=== PATIENT | male | born 1945 | race Caucasian/White ===

== ENCOUNTER 2018-11-27 14:41 | Emergency (ER) | payer OTHER, MEDICARE ==
[2018-11-27] MEDS ORDERED: NORCO 5/325 MG PO ONE (15:06)
[2018-11-27] MEDS ORDERED: Adacel Vial IM ONE ×2 (15:06→15:10)
[2018-11-27] MEDS ORDERED: NORCO 5/325 MG ONE (15:10)
--- NOTE | 2018-11-27 15:13 | ERPHSYRPT ---
- History of Present Illness Time Seen by Provider: 11/27/18 15:05 Source: patient Exam Limitations: no limitations Patient Subjective Stated Complaint: Pt states "I was working on a screen door and the wind got ahold of it and somehow my finger got in the way." Triage Nursing Assessment: Pt presnted alert and oriented X 3, skin pwd. Pt ambulates with an upright steady gait, able to speak in clear full sentences. Pt has apporx 2 cm laceration noted to left index finger Physician History: 73-year-old white male arrives with an approximately 2.5 cm flap laceration to his left index finger since just prior to arrival. Patient states he was working on a storm door when the wind caught the door and the door hit his finger. Patient has a 2.5 cm laceration to the left index finger distal finger begins that the PIP joint and extends along the ulnar aspect. Patient is not having any problems moving his fingers. Past medical history includes diabetes type 2, posttraumatic stress disorder Past surgical history includes hernia repair, right elbow, cholecystectomy and bilateral knee scopes. . Occurred: just prior to arrival Method of Injury: direct blow (struck with a screen door) Quality: constant Severity of Pain-Max: moderate Severity of Pain-Current: moderate Extremities Pain Location: 2nd finger: left Modifying Factors: Improves With: other (laceration distal left index finger 2.5 cm) Associated Symptoms: none Allergies/Adverse Reactions: No Known Drug Allergies Allergy (Unverified 11/27/18 14:54) Hx Tetanus, Diphtheria Vaccination/Date Given: No Hx Influenza Vaccination/Date Given: Yes Hx Pneumococcal Vaccination/Date Given: Yes Immunizations Up to Date: Yes - Review of Systems Constitutional: No Fever, No Chills Eyes: No Symptoms Ears, Nose, & Throat: No Symptoms Respiratory: No Cough, No Dyspnea Cardiac: No Chest Pain, No Edema, No Syncope Abdominal/Gastrointestinal: No Abdominal Pain, No Nausea, No Vomiting, No Diarrhea Genitourinary Symptoms: No Dysuria Musculoskeletal: Injury, Other (pain distal left index fingerwith 2.5 cm flap laceration.) Skin: Other (2.5 cm flap laceration left distal index finger) Neurological: No Dizziness, No Focal Weakness, No Sensory Changes Psychological: No Symptoms Endocrine: No Symptoms All Other Systems: Reviewed and Negative - Past Medical History Neurological History: No Pertinent History Cardiac History: Hypertension Respiratory History: No Pertinent History Endocrine Medical History: Diabetes Type II Other Medical History: PTSD- [place] - Past Surgical History Past Surgical History: Yes Other Surgical History: hernia. right elbow. lenin. bilat knee scope - Social History Smoking Status: Former smoker Exposure to second hand smoke: No Drug Use: none Patient Lives Alone: No - Nursing Vital Signs Nursing Vital Signs: Initial Vital Signs Temperature 97.8 F 11/27/18 14:48 Pulse Rate 97 H 11/27/18 14:48 Respiratory Rate 16 11/27/18 14:48 Blood Pressure 184/110 11/27/18 14:48 O2 Sat by Pulse Oximetry 96 11/27/18 14:48 Pain Scale Pain Intensity 10 - Physical Exam General Appearance: mild distress, alert Eyes, Ears, Nose, Throat Exam: moist mucous membranes Neck Exam: non-tender, supple Cardiovascular/Respiratory Exam: chest non-tender, normal breath sounds, regular rate/rhythm, no respiratory distress Abdominal Exam: non-tender, No guarding Back Exam: normal inspection, No vertebral tenderness Shoulder Exam: normal inspection, non-tender, no evidence of injury, normal ROM Elbow/Forearm Exam: normal inspection, non-tender, no evidence of injury, normal ROM Wrist Exam: normal inspection, non-tender, no evidence of injury, normal ROM Hand Exam: No normal inspection (2.5 cm flap laceration left distal index finger. Full range of motion left fingers includes left index finger good capillary refill left index finger sensation intact left index finger) Neuro/Tendon Exam: normal sensation, normal motor functions, No sensory deficit Mental Status Exam: alert, oriented x 3, cooperative Skin Exam: normal color, warm, dry SpO2 Interpretation: normal (96%) SpO2: 96 - Course Nursing assessment & vital signs reviewed: Yes Ordered Tests: Active Orders 24 hr Category Date Time Status Wound Care STAT Care 11/27/18 15:06 Active Medication Summary Discontinued Medications Generic Name Dose Route Start Last Admin Trade Name Freq PRN Reason Stop Dose Admin Hydrocodone Bitart/Acetaminophen 1 tab 11/27/18 15:06 [place] 5/325 Mg PO 11/27/18 15:07 STAT ONE Diphtheria/Tetanus/Acell Pertussis 0.5 ml 11/27/18 15:06 Adacel Vial IM 11/27/18 15:07 .ONCE ONE - Progress Progress: improved Progress Note: 11/27/18 15:11 This is a 73-year-old white male who arrives with complaint of pain in his left distal index finger he states he was struck with a screen door. He has a 2.5 cm laceration to the distal left index finger which begins at the DIP joint volar surface and extends along the left distal index finger ulnar aspect. He has full range of motion all fingers sensation intact to all fingers good capillary refill to all fingers. Patient does not want an x-ray. Will go ahead and have nurse clean the area and apply Dermabond and Steri- Strips. Will go ahead and update patient's DTaP. Will give patient [place] for pain. - Departure Departure Disposition: Home Clinical Impression: Contusion of left index finger Qualifiers: Encounter type: initial encounter Damage to nail status: without damage Qualified Code(s): S60.022A - Contusion of left index finger without damage to nail, initial encounter Laceration of left index finger Qualifiers: Encounter type: initial encounter Damage to nail status: without damage Foreign body presence: without foreign body Qualified Code(s): S61.211A - Laceration without foreign body of left index finger without damage to nail, initial encounter Condition: Fair Critical Care Time: No Referrals: HOSPITAL,'S [Primary Care Provider] - Additional Instructions: Return home. Keep area clean and dry. Do not soak the area. Do not apply ointments. [place] as prescribed. Followup with your family DrKerri or return if problems. Return for acute distress or for severe symptoms. Prescriptions: Hydrocodone/APAP 5-325 Tab^^^ [[place] 5-325 Tablet^^^] 1 tab PO Q6HPRN PRN #10 tablet MDD 6 PRN Reason: Pain
[2018-11-27 15:35] VITALS: BP 190/101; PULSE 88; O2SAT 97
== END 2018-11-27 15:41 | disposition home or self-care (01) ==
LOC: ED 14:41
DX: S60.022A Contusion of left index finger without damage to nail, initial encounter (principal); S61.211A Laceration without foreign body of left index finger without damage to nail, initial encounter; W45.8XXA Other foreign body or object entering through skin, initial encounter; Y93.H9 Activity, other involving exterior property and land maintenance, building and construction
CPT/HCPCS: 12001; 90471; 90715; 99283; A9270-GY

== ENCOUNTER 2021-01-15 10:00 | Emergency (ER) | payer OTHER, MEDICARE ==
[2021-01-15 10:23] LABS: Absolute Neutrophil Ct (ANC) 4.24 (1.4-6.9); BASOPHIL % 0.6 % (0.0-0.4); Basophil (Absolute #) 0.05 (0-0.4); Eosinophil % 6.1 % (0.00-5.0); Eosinophil (Absolute #) 0.55 (0-0.5); Hematocrit 49.8 % (42-50); Lymphocytes % 37.6 % (24.0-44.0); Mean Cell Volume 82.3 fl (78-100); Mean Corpuscular Hemoglobin 28.1 pg (26-32); Mean Corpuscular Hgb Concent. 34.1 g/dl (32-36); Mean Platelet Volume 10.5 fl (7.5-11.0); Monocyte (Absolute #) 0.81 (0.0-1.3); Neutrophil % 46.7 % (36.0-66.0); Platelet Count 226 K/mm3 (150-450); Red Blood Count 6.05 M/mm3 (4.1-5.6); Red Cell Distribution Width 14.1 % (11.5-14.0); White Blood Count 9.1 K/mm3 (4.0-10.5)
[2021-01-15 11:01] LABS: ALBUMIN 4.3 g/dL (3.5-5.0); ANION GAP 16.7 MEQ/L (5-15); BILIRUBIN,TOTAL 0.3 mg/dL (0.2-1.3); Calcium 9.4 mg/dL (8.4-10.2); Creatinine 1 1.31 mg/dL (0.66-1.25); EST GLOMERULAR FILTRATION RATE 56.4 ML/MIN; Total Protein 7.5 g/dL (6.3-8.2)
[2021-01-15] MEDS ORDERED: BABY ASPIRIN 81 MG CHEW ONE (11:40)
[2021-01-15] MEDS ORDERED: PLAVIX 75 MG Tablet ONE (11:40)
[2021-01-15] MEDS ORDERED: Sodium Chloride 0.9% 500 ML 500 ML IV ONE (11:40)
[2021-01-15] MEDS: Sodium Chloride 0.9% 500 ML 500 ML IV ONE (11:41)
[2021-01-15] MEDS: PLAVIX 75 MG Tablet PO ONE (11:41)
[2021-01-15] MEDS: ECOTRIN 81 MG PO ONE (11:43)
[2021-01-15] MEDS: BABY ASPIRIN 81 MG CHEW PO ONE (11:46)
--- NOTE | 2021-01-15 12:09 | ERPHSYRPT ---
- History of Present Illness Time Seen by Provider: 01/15/21 10:03 Source: patient Exam Limitations: no limitations Patient Subjective Stated Complaint: L arm numbness/tingling onset 0530 this am Triage Nursing Assessment: pt to ED c/o L arm numbness and tingling since waking at 0530 this am. "I tried to pull up my blanket and this harm wouldnt do it." noted mild weakness in that extremity when compared to R arm. pt states he has had difficulties with this arm in the past few weeks but not like today. denies hx CVA or TIA. also reports intermittent shooting HAs for last few days. no pain now but states rapid onset and relief. Physician History: 75 years old male with history of hypertension, GERD, diabetes mellitus, PTSD presented in the ER with chief complaint of left upper extremity numbness and weakness. Patient report he started to feel numbness last night, went to bed, woke up around 5 AM and was having difficulty movements of left upper extremity with weakness and worsening numbness. Over the course of hours weakness is improved but still feel numb and does not know what his left arm is doing. D enies any visual disturbance, no chest pain palpitations or shortness of breath. No difficulty speech. No difficulty ambulation. Denies any history of stroke in the past. Timing/Duration: yesterday, constant, sudden, worse Severity: moderate Character of Deficits: new weakness, altered sensation Deficits: no difficulties Baseline/Normal Cognition: alert oriented x 3 Current Cognition: alert oriented x 3 Baseline Gait: walks w/o assistance Associated Symptoms: weakness, numbness/tingling in legs/feet, No confusion, No fatigue, No fever, No chills, No loss of consciousness, No nausea, No vomiting, No insomnia, No muscle spasms, No ringing in ears, No seizures, No slurred speech, No trouble walking, No vision changes, No chest pain, No headache Allergies/Adverse Reactions: No Known Drug Allergies Allergy (Unverified 11/27/18 14:54) Hx Tetanus, Diphtheria Vaccination/Date Given: No Hx Influenza Vaccination/Date Given: Yes Hx Pneumococcal Vaccination/Date Given: Yes Immunizations Up to Date: Yes Travel Risk - International Travel Have you traveled outside of the country in past 3 weeks: No - Coronavirus Screening Are you exhibiting any of the following symptoms?: No Close contact with a COVID-19 positive Pt in past 14-21 Days: No - Vaccine Status Have you recieved a Covid-19 vaccination: No - Review of Systems Constitutional: No Symptoms Eyes: No Symptoms Ears, Nose, & Throat: No Symptoms Respiratory: No Symptoms Cardiac: No Symptoms Abdominal/Gastrointestinal: No Symptoms, Appetite Changes Musculoskeletal: No Symptoms Skin: No Symptoms Neurological: Focal Weakness, Sensory Changes Psychological: No Symptoms Endocrine: No Symptoms Hematologic/Lymphatic: No Symptoms Immunological/Allergic: No Symptoms - Past Medical History Pertinent Past Medical History: Yes Neurological History: No Pertinent History Cardiac History: Hypertension Respiratory History: No Pertinent History Endocrine Medical History: Diabetes Type II Other Medical History: PTSD- [place] - Past Surgical History Past Surgical History: Yes Other Surgical History: hernia. right elbow. lenin. bilat knee scope. joint pain R knee - Social History Smoking Status: Former smoker Exposure to second hand smoke: No Drug Use: none Patient Lives Alone: No - Nursing Vital Signs Nursing Vital Signs: Initial Vital Signs Temperature 98.0 F 01/15/21 10:22 Pulse Rate 75 01/15/21 10:22 Respiratory Rate 18 01/15/21 10:22 Blood Pressure 180/104 01/15/21 10:22 O2 Sat by Pulse Oximetry 97 01/15/21 10:22 Pain Scale Pain Intensity 0 - [place] Coma Scale Best Eye Response (Fl[place]): (4) open spontaneously Best Verbal Response (Janessa): (5) oriented Best Motor Response (Janessa): (6) obeys commands [place] Total: 15 - Physical Exam General Appearance: no apparent distress, alert Eye Exam: bilateral eye: normal inspection, PERRL, EOMI Ears, Nose, Throat Exam: normal ENT inspection, TMs normal, pharynx normal, moist mucous membranes Neck Exam: normal inspection, non-tender, supple, full range of motion, No meningismus Respiratory: normal breath sounds, lungs clear, No chest tenderness Cardiovascular: regular rate/rhythm, normal heart sounds Back Exam: normal inspection, normal range of motion Extremity Exam: normal inspection, normal range of motion, pelvis stable Mental Status: alert, oriented x 3, 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 Positive dysdiadochokinesia) Motor/Sensory: sensory deficit (Fine touch left upper extremity ), weak motor strength LUE (4/5), No pronator drift (R), No pronator drift (L) DTR: bicep (R): 2+, bicep (L): 2+, knee (R): 2+, knee (L): 2+ Skin Exam: normal color SpO2 Interpretation: normal SpO2: 97 O2 Delivery: Room Air - Course EKG Interpreted by Me: RATE (74), Sinus Rhythm, NORMAL AXIS, NORMAL INTERVALS, NORMAL QRS Ordered Tests: Active Orders 24 hr Category Date Time Status EKG-ER Only STAT Care 01/15/21 10:14 Completed IV Insertion STAT Care 01/15/21 10:14 Completed NPO (ED) STAT Care 01/15/21 10:14 Completed POCT Glucose Check STAT Care 01/15/21 10:14 Completed Pulse Oximetry (ED) STAT Care 01/15/21 10:14 Completed CHEST 1 VIEW (PORTABLE) Stat Exams 01/15/21 10:[address] ANGIOGRAPHY NECK [CT] Stat Exams 01/15/21 11:31 Completed CTA HEAD W AND/OR WO CONTRAST [CT] Stat Exams 01/15/21 11:31 Completed HEAD WITHOUT CONTRAST [CT] Stat Exams 01/15/21 10:15 Completed CBC W DIFF Stat Lab 01/15/21 10:20 Completed CMP Stat Lab 01/15/21 10:20 Completed Lactic Acid Stat Lab 01/15/21 10:14 Completed POCT GLUCOSE Stat Lab 01/15/21 10:18 Completed TROPONIN Q3H Lab 01/15/21 10:20 Completed TROPONIN Q3H Lab 01/15/21 13:01 Completed UA W/RFX UR CULTURE Stat Lab 01/15/21 13:35 Completed Transfer Order Routine Transfer 01/15/21 Ordered Medication Summary Discontinued Medications Generic Name Dose Route Start Last Admin Trade Name Freq PRN Reason Stop Dose Admin Acetaminophen 650 mg 01/15/21 14:10 01/15/21 14:28 Tylenol 325 Mg PO 01/15/21 14:11 650 mg STAT STA Administration Acetaminophen Confirm 01/15/21 14:28 Tylenol 325 Mg Administered 01/15/21 14:29 Dose 650 mg .ROUTE .STK-MED ONE Aspirin 81 mg 01/15/21 11:30 01/15/21 11:43 Ecotrin 81 Mg PO 01/15/21 11:31 Not Given 1XONLY ONE Aspirin Confirm 01/15/21 11:40 Baby Aspirin 81 Mg Chew Administered 01/15/21 11:41 Dose 81 mg .ROUTE .STK-MED ONE Aspirin 81 mg 01/15/21 11:44 01/15/21 11:46 Baby Aspirin 81 Mg Chew PO 01/15/21 11:45 81 mg STAT ONE Administration Clopidogrel Bisulfate 75 mg 01/15/21 11:30 01/15/21 11:41 Plavix 75 Mg Tablet PO 01/15/21 11:31 75 mg STAT ONE Administration Clopidogrel Bisulfate Confirm 01/15/21 11:40 Plavix 75 Mg Tablet Administered 01/15/21 11:41 Dose 75 mg .ROUTE .STK-MED ONE Diphenhydramine HCl 25 mg 01/15/21 14:57 01/15/21 15:00 Benadryl 50 Mg/Ml IV 01/15/21 14:58 25 mg STAT ONE Administration Diphenhydramine HCl Confirm 01/15/21 14:59 Benadryl 50 Mg/Ml Administered 01/15/21 15:00 Dose 50 mg .ROUTE .STK-MED ONE Sodium Chloride 500 mls @ 500 mls/hr 01/15/21 11:30 01/15/21 13:04 Sodium Chloride 0.9% 500 Ml IV 01/15/21 12:29 Infused .Q1H ONE Infusion Sodium Chloride Confirm 01/15/21 11:40 Sodium Chloride 0.9% 500 Ml Administered 01/15/21 11:41 Dose 500 mls @ ud IV .STK-MED ONE Lorazepam 1 mg 01/15/21 15:23 01/15/21 15:31 Ativan 1 Mg PO 01/15/21 15:24 1 mg STAT ONE Administration Lorazepam Confirm 01/15/21 15:29 Ativan 1 Mg Administered 01/15/21 15:30 Dose 1 mg .ROUTE .STK-MED ONE Lab/Rad Data: Laboratory Result Diagrams 01/15/21 10:20 01/15/21 10:20 Laboratory Results 01/15/21 01/15/21 01/15/21 Range/Units 13:35 13:01 12:03 WBC (4.0-10.5) K/mm3 RBC (4.1-5.6) M/mm3 Hgb (12.5-18.0) gm/dl Hct (42-50) % MCV (78-100) fl MCH (26-32) pg MCHC (32-36) g/dl RDW (11.5-14.0) % Plt Count (150-450) K/mm3 MPV (7.5-11.0) fl Gran % (36.0-66.0) % Eos # (Auto) (0-0.5) Absolute Lymphs (auto) (1.0-4.6) Absolute Monos (auto) (0.0-1.3) Lymphocytes % (24.0-44.0) % Monocytes % (0.0-12.0) % Eosinophils % (0.00-5.0) % Basophils % (0.0-0.4) % Absolute Granulocytes (1.4-6.9) Basophils # (0-0.4) Sodium (137-145) mmol/L Potassium (3.5-5.1) mmol/L Chloride (98-107) mmol/L Carbon Dioxide (22-30) mmol/L Anion Gap (5-15) MEQ/L BUN (9-20) mg/dL Creatinine (0.66-1.25) mg/dL Estimated GFR ML/MIN Glucose (74-106) mg/dL POC Glucometer (74 to 106) mg/dL Lactic Acid (0.4-2.0) Calcium (8.4-10.2) mg/dL Total Bilirubin (0.2-1.3) mg/dL AST (17-59) U/L ALT (0-50) U/L Alkaline Phosphatase (38-126) U/L Troponin I < 0.012 (0.000-0.034) ng/mL Serum Total Protein (6.3-8.2) g/dL Albumin (3.5-5.0) g/dL Urine Color STRAW (YELLOW) Urine Appearance CLEAR (CLEAR) Urine pH 7.0 (5-6) Ur Specific Claude 1.041 (1.005-1.025) Urine Protein NEGATIVE (Negative) Urine Ketones NEGATIVE (NEGATIVE) Urine Blood NEGATIVE (0-5) Saman/ul Urine Nitrite NEGATIVE (NEGATIVE) Urine Bilirubin NEGATIVE (NEGATIVE) Urine Urobilinogen NEGATIVE (0-1) mg/dL Ur Leukocyte Esterase NEGATIVE (NEGATIVE) Urine WBC (Auto) NONE (0-5) /HPF Urine RBC (Auto) NONE SEEN (0-2) /HPF U Epithel Cells (Auto) NONE (FEW) /HPF Urine Bacteria (Auto) NONE SEEN (NEGATIVE) /HPF Urine Mucus (Auto) SLIGHT (NEGATIVE) /HPF Urine Culture Reflexed NO (NO) Urine Glucose 150 (NEGATIVE) mg/dL SARS-CoV-2 (PCR) NEGATIVE (NEGATIVE) 01/15/21 01/15/21 01/15/21 Range/Units 10:20 10:20 10:20 WBC 9.1 (4.0-10.5) K/mm3 RBC 6.05 H (4.1-5.6) M/mm3 Hgb 17.0 (12.5-18.0) gm/dl Hct 49.8 (42-50) % MCV 82.3 (78-100) fl MCH 28.1 (26-32) pg MCHC 34.1 (32-36) g/dl RDW 14.1 H (11.5-14.0) % Plt Count 226 (150-450) K/mm3 MPV 10.5 (7.5-11.0) fl Gran % 46.7 (36.0-66.0) % Eos # (Auto) 0.55 H (0-0.5) Absolute Lymphs (auto) 3.40 (1.0-4.6) Absolute Monos (auto) 0.81 (0.0-1.3) Lymphocytes % 37.6 (24.0-44.0) % Monocytes % 9.0 (0.0-12.0) % Eosinophils % 6.1 H (0.00-5.0) % Basophils % 0.6 (0.0-0.4) % Absolute Granulocytes 4.24 (1.4-6.9) Basophils # 0.05 (0-0.4) Sodium 140 (137-145) mmol/L Potassium 4.0 (3.5-5.1) mmol/L Chloride 106 (98-107) mmol/L Carbon Dioxide 22 (22-30) mmol/L Anion Gap 16.7 H (5-15) MEQ/L BUN 19 (9-20) mg/dL Creatinine 1.31 H (0.66-1.25) mg/dL Estimated GFR 56.4 ML/MIN Glucose 168 H (74-106) mg/dL POC Glucometer (74 to 106) mg/dL Lactic Acid (0.4-2.0) Calcium 9.4 (8.4-10.2) mg/dL Total Bilirubin 0.30 (0.2-1.3) mg/dL AST 27 (17-59) U/L ALT 16 (0-50) U/L Alkaline Phosphatase 79 (38-126) U/L Troponin I < 0.012 (0.000-0.034) ng/mL Serum Total Protein 7.5 (6.3-8.2) g/dL Albumin 4.3 (3.5-5.0) g/dL Urine Color (YELLOW) Urine Appearance (CLEAR) Urine pH (5-6) Ur Specific Claude (1.005-1.025) Urine Protein (Negative) Urine Ketones (NEGATIVE) Urine Blood (0-5) Saman/ul Urine Nitrite (NEGATIVE) Urine Bilirubin (NEGATIVE) Urine Urobilinogen (0-1) mg/dL Ur Leukocyte Esterase (NEGATIVE) Urine WBC (Auto) (0-5) /HPF Urine RBC (Auto) (0-2) /HPF U Epithel Cells (Auto) (FEW) /HPF Urine Bacteria (Auto) (NEGATIVE) /HPF Urine Mucus (Auto) (NEGATIVE) /HPF Urine Culture Reflexed (NO) Urine Glucose (NEGATIVE) mg/dL SARS-CoV-2 (PCR) (NEGATIVE) 01/15/21 01/15/21 Range/Units 10:18 10:14 WBC (4.0-10.5) K/mm3 RBC (4.1-5.6) M/mm3 Hgb (12.5-18.0) gm/dl Hct (42-50) % MCV (78-100) fl MCH (26-32) pg MCHC (32-36) g/dl RDW (11.5-14.0) % Plt Count (150-450) K/mm3 MPV (7.5-11.0) fl Gran % (36.0-66.0) % Eos # (Auto) (0-0.5) Absolute Lymphs (auto) (1.0-4.6) Absolute Monos (auto) (0.0-1.3) Lymphocytes % (24.0-44.0) % Monocytes % (0.0-12.0) % Eosinophils % (0.00-5.0) % Basophils % (0.0-0.4) % Absolute Granulocytes (1.4-6.9) Basophils # (0-0.4) Sodium (137-145) mmol/L Potassium (3.5-5.1) mmol/L Chloride (98-107) mmol/L Carbon Dioxide (22-30) mmol/L Anion Gap (5-15) MEQ/L BUN (9-20) mg/dL Creatinine (0.66-1.25) mg/dL Estimated GFR ML/MIN Glucose (74-106) mg/dL POC Glucometer 158 H (74 to 106) mg/dL Lactic Acid 1.3 (0.4-2.0) Calcium (8.4-10.2) mg/dL Total Bilirubin (0.2-1.3) mg/dL AST (17-59) U/L ALT (0-50) U/L Alkaline Phosphatase (38-126) U/L Troponin I (0.000-0.034) ng/mL Serum Total Protein (6.3-8.2) g/dL Albumin (3.5-5.0) g/dL Urine Color (YELLOW) Urine Appearance (CLEAR) Urine pH (5-6) Ur Specific Claude (1.005-1.025) Urine Protein (Negative) Urine Ketones (NEGATIVE) Urine Blood (0-5) Saman/ul Urine Nitrite (NEGATIVE) Urine Bilirubin (NEGATIVE) Urine Urobilinogen (0-1) mg/dL Ur Leukocyte Esterase (NEGATIVE) Urine WBC (Auto) (0-5) /HPF Urine RBC (Auto) (0-2) /HPF U Epithel Cells (Auto) (FEW) /HPF Urine Bacteria (Auto) (NEGATIVE) /HPF Urine Mucus (Auto) (NEGATIVE) /HPF Urine Culture Reflexed (NO) Urine Glucose (NEGATIVE) mg/dL SARS-CoV-2 (PCR) (NEGATIVE) - Progress Progress: unchanged Progress Note: 01/15/21 12:04 75 years old is evaluated for left upper extremity weakness and numbness starting yesterday. Patient has improvement in weakness but still have numbness. Has positive cerebellar signs with positive past- pointing/dysdiadochokinesia. CT showed remote infarct. [facility] neurology consult is obtained, recommended CTA head neck and MRI/MRAs and other stroke work-up. Recommended giving 81 mg aspirin and Plavix and admission to telemetry unit with neuro checks. Discussed with and patient is accepted for admission. Plan discussed with patient who understand and agrees with it. 01/15/21 13:34 CTA showed focal stenosis of right internal carotid artery as it pierces the dura proximal to the origin of posterior communicating artery and also high-grade stenosis of proximal right M1 segment of middle cerebral artery with a residual diameter of 1 mm but has satisfactory perfusion to the right middle cerebral artery branches distally. CTA neck revealed less than 50% stenosis in the right and left internal carotid artery but there is a posterior hypodense rim suspicious for unstable fatty plaque. Also has left vertebral artery significant stenosis at origin. Since he is a [facility] patient, discussed with dr. Lei [facility], reviewed history, work-up, recommended discussion with neuro interventional list and if patient does not need immediate intervention will be accepted. 01/15/21 14:44 from neurology. Discussed history, work-up and possible need for intervention, did not seem impressed with findings that need immediate intervention, patient would be admitted to neurology. There is a wait time of multiple hours 2 days before patient can be transferred to . Since patient was excepted at [facility], will discuss with neuro interventional list to see if patient is a candidate for immediate intervention or he can be managed with neurology initially and later on can be referred there. 01/15/21 15:[address] [place] Powers, neurosurgery/neuro interventional, reviewed history, exam findings, and CT head without contrast and CTA head and neck. Recommended patient does not need any immediate neuro intervention at this point because of his low NIH score less than 6 and based on a recent study patient needs medical management initially with a dual antiplatelet therapy aspirin Plavix for at least 1 month. In the meanwhile if patient have another episode he would be considered a potential candidate for intervention. Patient can be admitted to neurology service and then patient can follow-up outpatient with his clinic. Upon discharge from [facility] patient needs to have an appointment with neurosurgery and he will be accommodated. Dr. [place] Powers neurosurgery [phone] Reason for consult/referral. Right MCA stenosis 01/15/21 15:[address] Lei again at [facility], reviewed neurosurgery recommendations, she recommended loading patient with 600 of Plavix and 81 mg aspirin, patient is accepted for transfer. 01/15/21 15:19 Patient was very anxious when I went back and refused to talk to his . He has been moving his left arm in all direction without any limitation, did not notice any new focal weakness. He was also having some shivering and given Benadryl as he might have some allergic reaction to IV contrast. Discussed with : Nicole Will see patient in: hospital (observation) Counseled pt/family regarding: lab results, diagnosis, rad results - Departure Departure Disposition: Observation Clinical Impression: Anxiety Stroke Qualifiers: CVA mechanism: unspecified Qualified Code(s): I63.9 - Cerebral infarction, unspecified Condition: Stable Critical Care Time: Yes Critical Care Time(excluding separately billable procedures): Critical 30-74 mins Referrals: HOSPITAL,'S [Primary Care Provider] -
[2021-01-15] MEDS ORDERED: TYLENOL 325 MG ONE (14:28)
[2021-01-15] MEDS: TYLENOL 325 MG PO STA (14:28)
[2021-01-15 14:39] LABS: Appearance CLEAR (CLEAR); Bilirubin NEGATIVE (NEGATIVE); Blood NEGATIVE Ery/ul (0-5); Glucose 150 mg/dL (NEGATIVE); Ketones NEGATIVE (NEGATIVE); Leukocyte Esterase NEGATIVE (NEGATIVE); Mucus SLIGHT /HPF (NEGATIVE); Nitrite NEGATIVE (NEGATIVE); Protein,Urine Dip NEGATIVE (Negative); Specific Gravity 1.041 (1.005-1.025); Urobilinogen NEGATIVE mg/dL (0-1)
[2021-01-15 14:43] LABS: Bacteria NONE SEEN /HPF (NEGATIVE); RBC NONE SEEN /HPF (0-2)
[2021-01-15] MEDS ORDERED: BENADRYL 50 MG/ML ONE (14:59)
[2021-01-15] MEDS: BENADRYL 50 MG/ML IV ONE (15:00)
[2021-01-15 15:13] VITALS: O2SAT 97
[2021-01-15] MEDS ORDERED: Ativan 1 MG ONE (15:29)
[2021-01-15] MEDS: Ativan 1 MG PO ONE (15:31)
[2021-01-15 16:39] VITALS: BP 172/90; PULSE 82
--- NOTE | 2021-01-15 17:03 | XRAY ---
Indication: Arm tingling. Stroke symptoms. Comparison: None Portable apical lordotic chest clear. Heart not enlarged. Left infrahilar chunky calcified nodes. Bony thorax intact with mild osteopenia and degenerative changes. Impression: Nonacute chest with chronic features.
--- NOTE | 2021-01-15 17:05 | XRAY ---
Indication: Left arm weakness/tingling. Stroke symptoms. Multiple contiguous axial images obtained through the head without contrast. Comparison: None Age-appropriate global atrophy and minimal periventricular degenerative micro-ischemia bilaterally. Small focus of old infarct right cerebellum. No acute intracranial hemorrhage, abnormal extra-axial fluid collection, or mass effect. Fourth ventricle is midline without hydrocephalus. Bony calvarium intact. There is mild mucosal thickening of both ethmoid and lesser degree both maxillary/ left sphenoid sinuses. Mastoid air cells are clear. Impression: Nonacute senile brain. 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 Incidental paranasal sinus disease. Comment: Preliminary interpretation made by [facility]. No critical discrepancy.
--- NOTE | 2021-01-15 17:16 | XRAY ---
Indication: Left arm weakness/tingling. Stroke symptoms. Conventional CTA neck performed using 100 cc Isovue 370 contrast. Two-dimensional sagittal and coronal reformatted images obtained. Additional 3-dimensional reformatted images using separate workstation. Comparison: None Visualized aortic arch normal in course and caliber without aneurysm/dissection. There is normal branch right brachiocephalic, left common carotid, and left subclavian arteries with very minimal calcifications at their origins. Right carotid circulation demonstrates minimal eccentric carotid bulb calcifications. Remaining common carotid, internal carotid, and external carotid arteries are normal in CTA appearance. Left carotid circulation demonstrates mild eccentric calcified plaquing at the level of the bulb slightly extending to the origin of internal and external carotid arteries without critical stenosis/obstruction. Remaining common carotid artery is normal in CTA appearance. Vertebral arteries are bilaterally patent with the right larger in caliber. Visualized noncontrasted soft tissues demonstrates a few tiny cervical lymph nodes bilaterally, none pathologically enlarged. Parotid and submandibular glands are bilaterally symmetric. Thyroid gland homogeneous. Lung apices are degraded by respiration artifact with possible patchy bilateral groundglass airspace disease. Patient is edentulous. Osseous structures intact with mild/moderate C3-C7 degenerative changes. CTA head reported specifically. Impression: 1. Minimal/mild arteriosclerotic calcifications bilaterally without critical stenosis/obstruction. 2. Bilaterally patent vertebral arteries with dominant right vertebral artery. 3. Incidental C3-C7 degenerative changes. 4. Query biapical patchy groundglass airspace disease. Comment: Preliminary interpretation made by [facility]. No critical discrepancy.
--- NOTE | 2021-01-15 17:26 | XRAY ---
Indication: Left arm weakness/tingling. Stroke symptoms. Conventional CTA head performed using 100 cc Isovue 370 contrast. Two-dimensional sagittal and coronal reformatted images obtained. Additional 3-dimensional reformatted images using separate workstation. Comparison: None CTA neck reported separately. Parasellar segments of the internal carotid arteries demonstrates mild scattered arteriosclerotic calcifications without critical stenosis/obstruction or AV malformation. Normal carotid terminus with normal branching A1 and M1 segments. Proximal right M1 branch demonstrates smooth intraluminal stenosis, approximately 70-80%. Remaining distal anterior cerebral and middle cerebral arteries are normal in CTA appearance. Incidental normal variant for origin of the left posterior cerebral artery. Posterior circulation demonstrates normal CTA appearance of the basilar artery, right posterior cerebral, and left/right superior cerebellar arteries. Venous drainage/sinuses unremarkable. No abnormal enhancing intra-or extra-axial mass. Impression: 1. Mild arteriosclerotic calcifications parasellar segments of both internal carotid arteries without critical stenosis/obstruction or AV malformation. 2. Smooth 70-80% stenosis of the right M1 branch. 3. Normal CTA posterior circulation with incidental origin left posterior cerebral artery. Comment: Preliminary interpretation made by [facility]. No critical discrepancy.
== END 2021-01-15 16:05 ==
LOC: ED 10:00
DX: F41.9 Anxiety disorder, unspecified (principal); I63.9 Cerebral infarction, unspecified; E11.9 Type 2 diabetes mellitus without complications
CPT/HCPCS: 36000; 36415; 70450; 70496; 70498; 71045; 80053; 81001; 82947; 83605; 84484; 85025; 93005; 94760; 96374; 99285; 99291; U0003; 96375; J1200; A9270-GY

== ENCOUNTER 2021-02-12 16:34 | Inpatient (IN) | payer OTHER ==
[2021-02-12] MEDS ORDERED: solu-MEDROL 125 MG, Sterile H2O 10 ml 2 ML IV ONE ×2 (16:50)
[2021-02-12] MEDS: Lactated Ringers 1,000 ML IV SCH (16:53)
[2021-02-12] MEDS ORDERED: Sterile H2O 10 ml IJ ONE (16:54)
[2021-02-12] MEDS ORDERED: solu-MEDROL ONE (16:54)
--- NOTE | 2021-02-12 17:04 | ERPHSYRPT ---
- History of Present Illness Time Seen by Provider: 02/12/21 16:59 Source: patient Exam Limitations: no limitations Patient Subjective Stated Complaint: weakness Triage Nursing Assessment: Patient brought into ED via w/c and transferred to bed with assist of 2. Patient weak. Patient's skin flushed, warm and dry. Patient intial O2 sat noted to be 76% on room air. Patient placed on O2 at 5 liters bringing sat to 88%. RT present at bedside and placed on oxy mask at 10 liters. Patient states his is covid positive and he has been feeling bad for the past 4-5 days. Patient complains of weakness, dizziness, non productive cough and SOB. Lungs noted to be clear A/P holli. Physician History: atient states his is covid positive and he has been feeling bad for the past 4-5 days. Patient complains of weakness, dizziness, non productive cough and SOB. Timing/Duration: day(s) (4-5 days) Severity of Dyspnea-Max: severe Severity of Dyspnea-Current: severe Associated Symptoms: fever, wheezing, weakness Allergies/Adverse Reactions: No Known Drug Allergies Allergy (Verified 02/12/21 16:36) Hx Tetanus, Diphtheria Vaccination/Date Given: No Hx Influenza Vaccination/Date Given: No Hx Pneumococcal Vaccination/Date Given: Yes Immunizations Up to Date: Yes Travel Risk - International Travel Have you traveled outside of the country in past 3 weeks: No - Coronavirus Screening Are you exhibiting any of the following symptoms?: Yes Symptoms: Cough: New Onset, Shortness of Breath Close contact with a COVID-19 positive Pt in past 14-21 Days: Yes - Vaccine Status Have you recieved a Covid-19 vaccination: No - Review of Systems Constitutional: Fever, Weakness Eyes: No Symptoms Ears, Nose, & Throat: No Symptoms Respiratory: Cough, Dyspnea, Dyspnea on Exertion (MCCARTY), Wheezing Cardiac: Chest Pain, No Edema, No Syncope Abdominal/Gastrointestinal: No Abdominal Pain, No Nausea, No Vomiting, No Diarrhea Genitourinary Symptoms: No Dysuria Musculoskeletal: No Back Pain, No Neck Pain Skin: No Rash Neurological: No Dizziness, No Focal Weakness, No Sensory Changes Psychological: No Symptoms Endocrine: No Symptoms All Other Systems: Reviewed and Negative - Past Medical History Pertinent Past Medical History: Yes Neurological History: No Pertinent History Cardiac History: Hypertension Respiratory History: No Pertinent History Endocrine Medical History: Diabetes Type II Other Medical History: PTSD- [place] - Past Surgical History Past Surgical History: Yes Other Surgical History: hernia. right elbow. lenin. bilat knee scope. joint pain R knee - Social History Smoking Status: Former smoker Exposure to second hand smoke: No Drug Use: none Patient Lives Alone: No - Nursing Vital Signs Nursing Vital Signs: Initial Vital Signs Temperature 99.4 F 02/12/21 16:37 Pulse Rate 85 02/12/21 16:37 Respiratory Rate 25 H 02/12/21 16:37 Blood Pressure 127/78 02/12/21 16:37 O2 Sat by Pulse Oximetry 76 L 02/12/21 16:37 Pain Scale Pain Intensity 0 - Physical Exam General Appearance: moderate distress, lethargy Eye Exam: PERRL/EOMI Ears, Nose, Throat Exam: normal ENT inspection Neck Exam: normal inspection, supple Respiratory Exam: diminished breath sounds, accessory muscle use, crackles/rales, rhonchi, wheezing Cardiovascular/Chest Exam: tachycardia Abdominal/Gastrointestinal Exam: soft, No tenderness, No distention, No mass Extremity Exam: non-tender, normal range of motion, normal inspection, no calf tenderness, no pedal edema Neurologic Exam: alert, sensation nml, No motor deficits Skin Exam: normal color, warm, No dry SpO2 Interpretation: hypoxic, ABG ordered SpO2: 76 O2 Delivery: High Flow - Course Nursing assessment & vital signs reviewed: Yes - CT Exams Chest CT Interpretation: Tele-radiologist Report Ordered Tests: Active Orders 24 hr Category Date Time Status Nursing Unit Clerk STAT Care 02/12/21 16:49 Active EKG-ER Only STAT Care 02/12/21 16:49 Active IV Insertion STAT Care 02/12/21 16:54 Active IV Insertion-2nd Peripheral STAT Care 02/12/21 16:49 Active Isolation, Initiate & Maintain STAT Care 02/12/21 16:49 Active Oxygen-ED Only High Flow per RT 50% Care 02/12/21 16:49 Active CHEST 1 VIEW (PORTABLE) Stat Exams 02/12/21 16:49 Ordered CHEST W/WO CONTRAST [CT] Stat Exams 02/12/21 16:51 Ordered ARTERIAL BLOOD GASES Stat Lab 02/12/21 17:05 Completed CBC Stat Lab 02/12/21 17:02 Completed CMP Stat Lab 02/12/21 17:02 Completed D-DIMER QUANTITATIVE Stat Lab 02/12/21 17:02 Completed Ferritin Stat Lab 02/12/21 17:02 Received LDH-LACTATE DEHYDROGENASE Stat Lab 02/12/21 17:02 Completed NT PRO BNP Stat Lab 02/12/21 17:02 Received TROPONIN Q3H Lab 02/12/21 17:02 Received TROPONIN Q3H Lab 02/12/21 20:00 Ordered TROPONIN Q3H Lab 02/12/21 23:00 Ordered TROPONIN Q3H Lab 02/13/21 02:00 Ordered TROPONIN Q3H Lab 02/13/21 05:00 Ordered Medication Summary Generic Name Dose Route Start Last Admin Trade Name Freq PRN Reason Stop Dose Admin Lactated Ringer's 1,000 mls @ 50 mls/hr 02/12/21 17:00 02/12/21 17:26 Lactated Ringers IV 03/14/21 16:59 999 mls/hr .Q20H ARLETTE Infusion Discontinued Medications Generic Name Dose Route Start Last Admin Trade Name Freq PRN Reason Stop Dose Admin Methylprednisolone Sodium 0 mg 02/12/21 16:50 02/12/21 16:56 Succinate 125 mg/ Sterile IV 02/12/21 16:51 125 mg Water 2 ml STAT ONE Administration Methylprednisolone Sodium Succinate Confirm 02/12/21 16:54 Solu-Medrol Administered 02/12/21 16:55 Dose 125 mg .ROUTE .STK-MED ONE Sterile Water Confirm 02/12/21 16:54 Sterile H2o 10 Ml Administered 02/12/21 16:55 Dose 10 ml IJ .STK-MED ONE Lab/Rad Data: Laboratory Result Diagrams 02/12/21 17:02 02/12/21 17:02 Laboratory Results 02/12/21 02/12/21 02/12/21 Range/Units 17:05 17:02 17:02 WBC (4.0-10.5) K/mm3 RBC (4.1-5.6) M/mm3 Hgb (12.5-18.0) gm/dl Hct (42-50) % MCV (78-100) fl MCH (26-32) pg MCHC (32-36) g/dl RDW (11.5-14.0) % Plt Count (150-450) K/mm3 MPV (7.5-11.0) fl D-Dimer 728 H* (215-500) ng/mL Puncture Site RIGHT RADIAL pCO2 35 (35-45) mmHg pO2 72 L (75-100) mmHg Base Excess 7.2 H (-2.0-2.0) O2 Saturation 94.1 (94-100) g/dF ABG pH 7.54 H (7.35-7.45) ABG HCO3 29.9 H* (22-28) ABG O2 Sat (Measured) 96.2 (95-100) % Hans Test YES A-a Gradient 597 a/A Ratio 0.11 Hemoglobin 17.9 Carboxyhemoglobin 1.6 (0.0-6.9) % THgb Methemoglobin 0.6 L (1.4-1.5) % Temperature 37.0 C POC O2 Flow Rate 100 % Sodium 136 L (137-145) mmol/L Potassium 3.2 L 3.7 (3.5-5.1) mmol/L Chloride 92 L (98-107) mmol/L Carbon Dioxide 33 H (22-30) mmol/L Anion Gap 14.9 (5-15) MEQ/L BUN 41 H (9-20) mg/dL Creatinine 1.54 H (0.66-1.25) mg/dL Estimated GFR 46.8 ML/MIN Glucose 248 H (74-106) mg/dL Calcium 9.0 (8.4-10.2) mg/dL Total Bilirubin 1.00 (0.2-1.3) mg/dL AST 98 H (17-59) U/L ALT 45 (0-50) U/L Alkaline Phosphatase 66 (38-126) U/L Lactate Dehydrogenase 593 H (120-246) U/L Serum Total Protein 7.3 (6.3-8.2) g/dL Albumin 3.9 (3.5-5.0) g/dL 02/12/21 Range/Units 17:02 WBC 5.7 (4.0-10.5) K/mm3 RBC 6.44 H* (4.1-5.6) M/mm3 Hgb 18.5 H (12.5-18.0) gm/dl Hct 51.9 H (42-50) % MCV 80.6 (78-100) fl MCH 28.7 (26-32) pg MCHC 35.6 (32-36) g/dl RDW 13.8 (11.5-14.0) % Plt Count 158 (150-450) K/mm3 MPV 11.9 H (7.5-11.0) fl D-Dimer (215-500) ng/mL Puncture Site pCO2 (35-45) mmHg pO2 (75-100) mmHg Base Excess (-2.0-2.0) O2 Saturation (94-100) g/dF ABG pH (7.35-7.45) ABG HCO3 (22-28) ABG O2 Sat (Measured) (95-100) % Hans Test A-a Gradient a/A Ratio Hemoglobin Carboxyhemoglobin (0.0-6.9) % THgb Methemoglobin (1.4-1.5) % Temperature C POC O2 Flow Rate % Sodium (137-145) mmol/L Potassium (3.5-5.1) mmol/L Chloride (98-107) mmol/L Carbon Dioxide (22-30) mmol/L Anion Gap (5-15) MEQ/L BUN (9-20) mg/dL Creatinine (0.66-1.25) mg/dL Estimated GFR ML/MIN Glucose (74-106) mg/dL Calcium (8.4-10.2) mg/dL Total Bilirubin (0.2-1.3) mg/dL AST (17-59) U/L ALT (0-50) U/L Alkaline Phosphatase (38-126) U/L Lactate Dehydrogenase (120-246) U/L Serum Total Protein (6.3-8.2) g/dL Albumin (3.5-5.0) g/dL - Progress Progress: unchanged Air Movement: fair Blood Culture(s) Obtained: No Antibiotics given: No Counseled pt/family regarding: lab results, diagnosis, need for follow-up, rad results - Departure Departure Disposition: In-patient Admission Clinical Impression: Pneumonia due to COVID-19 virus Respiratory failure Qualifiers: Chronicity: acute Respiratory failure complication: hypoxia Qualified Code(s): J96.01 - Acute respiratory failure with hypoxia Condition: Serious Critical Care Time: Yes Critical Care Time(excluding separately billable procedures): Critical 30-74 mins Referrals: HOSPITAL,'S [Primary Care Provider] -
[2021-02-12 17:06] LABS: Hematocrit 51.9 % (42-50); Hemoglobin 18.5 gm/dl (12.5-18.0); Mean Cell Volume 80.6 fl (78-100); Mean Corpuscular Hemoglobin 28.7 pg (26-32); Mean Corpuscular Hgb Concent. 35.6 g/dl (32-36); Mean Platelet Volume 11.9 fl (7.5-11.0); Platelet Count 158 K/mm3 (150-450); Red Blood Count 6.44 M/mm3 (4.1-5.6); Red Cell Distribution Width 13.8 % (11.5-14.0); White Blood Count 5.7 K/mm3 (4.0-10.5)
[2021-02-12 17:08] LABS: A-aADO2 597; ABG HEMOGLOBIN 17.9; ABG POTASSIUM 3.2 (3.5-5.1); ABG SITE RIGHT RADIAL; ALLEN TEST OK? YES; ARTERIAL BLD GAS O2 SATURATION 96.2 % (95-100); ARTERIAL BLOOD GAS BASE EXCESS 7.2 (-2.0-2.0); ARTERIAL BLOOD GAS FIO2 100 %; ARTERIAL BLOOD GAS PCO2 35 mmHg (35-45); ARTERIAL BLOOD GAS PO2 72 mmHg (75-100); ARTERIAL BLOOD GAS pH 7.54 (7.35-7.45); CARBOXYHEMOGLOBIN 1.6 % THgb (0.0-6.9); HCO3- 29.9 (22-28); HGB O2 SAT 94.1 g/dF (94-100); Methhemoglobin 0.6 % (1.4-1.5)
[2021-02-12 17:18] LABS: ALBUMIN 3.9 g/dL (3.5-5.0); ANION GAP 14.9 MEQ/L (5-15); Creatinine 1 1.54 mg/dL (0.66-1.25); EST GLOMERULAR FILTRATION RATE 46.8 ML/MIN; Potassium 3.7 mmol/L (3.5-5.1); Total Protein 7.3 g/dL (6.3-8.2)
[2021-02-12] MEDS ORDERED: Zofran 4 MG/2 ML VIAL IV PRN (17:37)
[2021-02-12] MEDS ORDERED: Sodium Chloride 0.9% 1000 ML 1,000 ML IV SCH (17:45)
[2021-02-12] MEDS ORDERED: solu-MEDROL 60 MG, Sterile H2O 10 ml 2 ML IV SCH ×2 (18:00)
[2021-02-12] MEDS ORDERED: TYLENOL EXTRA STRENGTH 500 MG PO PRN (21:40)
[2021-02-12] MEDS ORDERED: REMDESIVIR 200 MG in Sodium Chloride 0.9% 250 ML 250 ML IV ONE (21:40)
[2021-02-12] MEDS ORDERED: Ativan 2 MG/1 ML VIAL IV PRN (21:40)
[2021-02-12] MEDS ORDERED: Sodium Chloride 0.9% 250 ML 250 ML IV ONE (21:56)
[2021-02-12] MEDS: Pepcid 20 MG VIAL IV SCH (21:57)
[2021-02-12] MEDS: HUMALOG SQ PRN (21:57)
[2021-02-12] MEDS ORDERED: REMDESIVIR IV ONE (21:57)
[2021-02-13 06:36] LABS: Hematocrit 45.3 % (42-50); Hemoglobin 15.3 gm/dl (12.5-18.0); Mean Cell Volume 82.2 fl (78-100); Mean Corpuscular Hemoglobin 27.8 pg (26-32); Mean Corpuscular Hgb Concent. 33.8 g/dl (32-36); Mean Platelet Volume 11.9 fl (7.5-11.0); Platelet Count 148 K/mm3 (150-450); Red Blood Count 5.51 M/mm3 (4.1-5.6); Red Cell Distribution Width 13.6 % (11.5-14.0); White Blood Count 4.1 K/mm3 (4.0-10.5)
[2021-02-13 06:58] LABS: ALBUMIN 2.9 g/dL (3.5-5.0); ALKALINE PHOSPHATASE 51 U/L (38-126); ANION GAP 12.2 MEQ/L (5-15); BLOOD UREA NITROGEN 39 mg/dL (9-20); CHLORIDE 94 mmol/L (98-107); Calcium 8.1 mg/dL (8.4-10.2); Carbon Dioxide 28 mmol/L (22-30); Creatinine 1 1.16 mg/dL (0.66-1.25); EST GLOMERULAR FILTRATION RATE > 60.0 ML/MIN; Glucose 358 mg/dL (74-106); NT PRO BNP 127 pg/mL (0-1800); Potassium 3.8 mmol/L (3.5-5.1); SGOT/AST 68 U/L (17-59); SGPT/ALT 38 U/L (0-50); SODIUM 130 mmol/L (137-145); Total Protein 5.6 g/dL (6.3-8.2)
[2021-02-13] MEDS: HUMALOG SQ PRN ×4 (07:52→21:49)
--- NOTE | 2021-02-13 08:32 | XRAY ---
Indication: Hypoxia. Short of breath. Positive Covid 19. Comparison: January 15, 2021. Portable chest demonstrates new diffuse bilateral patchy airspace disease without consolidation/large effusion. Heart not enlarged with stable left hilar calcified nodes.
--- NOTE | 2021-02-13 08:32 | XRAY ---
Indication: Hypoxia. Short of breath. Positive Covid 19. Multiple contiguous axial images obtained through the chest without contrast. Comparison: None Lungs demonstrate diffuse bilateral airspace disease greatest in both lower lobes. No consolidation/large effusion. Heart is not enlarged. Aorta minimally arteriosclerotic without aneurysm. [place] left hilar calcified nodes. Small hiatal hernia. Bony thorax intact with mild degenerative changes throughout the spine. Limited upper abdomen demonstrates splenic calcified granulomas and cholecystectomy clips. Impression: 1. Diffuse bilateral airspace disease. Commonly reported imaging features of Covid 19 pneumonia are present. Other processes such as influenza pneumonia and organizing pneumonia, as can be seen with drug toxicity and connective tissue disease, can cause similar imaging pattern. 2. Incidental small hiatal hernia and old granulomatous disease. Comment: Preliminary interpretation made by C. No critical discrepancy.
[2021-02-13 08:33] LABS: ATYPICAL LYMPHS 2 %; BAND 3 % (0.0-2.0); Lymphocytes 16 % (24-44); Monocyte 3 % (0.0-12.0); Neutrophils 76 % (36.-66.); Platelet Estimate NORMAL (NORMAL); Total Cells Counted 100
[2021-02-13] MEDS ORDERED: OLUMIANT PO SCH (10:00)
[2021-02-13] MEDS ORDERED: Decadron 4 MG INJ IV SCH (10:00)
[2021-02-13] MEDS ORDERED: ROCEPHIN 1 Gm-D5w 50 ml Bag** 1 G/50 ML IVPB IV SCH (10:00)
[2021-02-13] MEDS ORDERED: Zithromax 500 MG/ 250 ML NaCl Premix 500 MG/250 ML IVPB IV SCH (10:00)
[2021-02-13] MEDS: ENOXAPARIN SODIUM SQ SCH (10:08)
[2021-02-13] MEDS: DECADRON 10MG INJ. IV SCH (10:08)
[2021-02-13] MEDS: OLUMIANT PO SCH (10:09)
[2021-02-13] MEDS: Pepcid 20 MG VIAL IV SCH ×2 (10:09→21:49)
--- NOTE | 2021-02-13 14:37 | HP ---
CHIEF COMPLAINT: "Can't breathe". HISTORY OF PRESENT ILLNESS: A 75 year-old white male whose tested positive for COVID over a week ago. For two days he has been chilling, short of breath, weak and having trouble walking today and finally came in. He had a little bit of a productive cough. He has no nausea, vomiting or diarrhea. He is a smoker. If he has quit it has been in the last year. He is a pack a day keenan. He is retired. He lives with his and step-son who has got COVID. PHYSICAL EXAMINATION: GENERAL: The patient is alert, orientated, pleasant, looks like a strong 75 year-old man. HEENT: Pupils equal and reactive to light. NECK: Supple without adenopathy. CHEST: Rales bilateral. CVS: Regular rate. ABDOMEN: Soft. No masses or organomegaly. He is not obese. EXTREMITIES: Good pulses. No edema. IMPRESSION: He has bilateral COVID pneumonia, respiratory distress, diabetes mellitus, hypertension, in stable condition right now. PROGNOSIS: Guarded.
[2021-02-13] MEDS: PLAVIX 75 MG Tablet PO SCH (15:39)
[2021-02-13] MEDS: ZOCOR 20MG PO SCH (15:39)
[2021-02-13] MEDS: NORVASC 5 MG PO SCH (15:39)
[2021-02-13] MEDS: hydroDIURIL 25 MG PO SCH (15:39)
[2021-02-13] MEDS: ECOTRIN 81 MG PO SCH (15:39)
[2021-02-13] MEDS: SYNTHROID 25 MCG PO SCH (15:39)
[2021-02-13] MEDS: Lantus Insulin SQ SCH (15:40)
[2021-02-13] MEDS: Glucophage 500 MG PO SCH (16:58)
[2021-02-13] MEDS: Lactated Ringers 1,000 ML IV SCH (18:07)
[2021-02-13] MEDS: Protonix 40MG Tablet PO SCH (21:49)
[2021-02-13] MEDS ORDERED: NON-FORMULARY ITEM (Omeprazole [Omeprazole] 40 MG) PO SCH (22:00)
[2021-02-14 05:26] LABS: A-aADO2 464; ABG HEMOGLOBIN 15.9; ABG POTASSIUM 3.2 (3.5-5.1); ABG SITE RIGHT BRACHIAL; ARTERIAL BLD GAS O2 SATURATION 91.9 % (95-100); ARTERIAL BLOOD GAS BASE EXCESS 8.7 (-2.0-2.0); ARTERIAL BLOOD GAS FIO2 80 %; ARTERIAL BLOOD GAS PCO2 36 mmHg (35-45); ARTERIAL BLOOD GAS PO2 61 mmHg (75-100); ARTERIAL BLOOD GAS pH 7.55 (7.35-7.45); CARBOXYHEMOGLOBIN 0.8 % THgb (0.0-6.9); HCO3- 31.5 (22-28); HGB O2 SAT 90.4 g/dF (94-100); Methhemoglobin 0.7 % (1.4-1.5)
[2021-02-14 05:40] LABS: Hematocrit 49.4 % (42-50); Hemoglobin 16.7 gm/dl (12.5-18.0); Mean Cell Volume 83.3 fl (78-100); Mean Corpuscular Hemoglobin 28.2 pg (26-32); Mean Corpuscular Hgb Concent. 33.8 g/dl (32-36); Platelet Count 132 K/mm3 (150-450); Red Blood Count 5.93 M/mm3 (4.1-5.6); Red Cell Distribution Width 13.9 % (11.5-14.0); White Blood Count 9.3 K/mm3 (4.0-10.5)
[2021-02-14 06:29] LABS: ANION GAP 10.4 MEQ/L (5-15); Potassium 3.7 mmol/L (3.5-5.1)
[2021-02-14] MEDS: Glucophage 500 MG PO SCH ×2 (08:35→17:17)
--- NOTE | 2021-02-14 09:02 | XRAY ---
Indication: Short of breath. Positive Covid 19. Comparison: February 12, 2021. Portable chest demonstrates grossly stable diffuse bilateral patchy airspace disease again without consolidation/large effusion. Heart not enlarged again with incidental left hilar calcified nodes. No new cardiopulmonary abnormalities.
[2021-02-14] MEDS ORDERED: NON-FORMULARY ITEM (Atorvastatin Calcium [Atorvastatin Calcium] 80 MG) PO SCH (10:00)
[2021-02-14] MEDS: Pepcid 20 MG VIAL IV SCH ×2 (11:28→21:29)
[2021-02-14] MEDS: DECADRON 10MG INJ. IV SCH (11:28)
[2021-02-14] MEDS: NORVASC 5 MG PO SCH (11:29)
[2021-02-14] MEDS: ZOCOR 20MG PO SCH (11:29)
[2021-02-14] MEDS: ECOTRIN 81 MG PO SCH (11:29)
[2021-02-14] MEDS: hydroDIURIL 25 MG PO SCH (11:29)
[2021-02-14] MEDS: SYNTHROID 25 MCG PO SCH (11:30)
[2021-02-14] MEDS: Protonix 40MG Tablet PO SCH ×2 (11:30→21:29)
[2021-02-14] MEDS: Lantus Insulin SQ SCH (11:30)
[2021-02-14] MEDS: OLUMIANT PO SCH ×2 (11:35→14:26)
[2021-02-14] MEDS: ENOXAPARIN SODIUM SQ SCH (11:38)
[2021-02-14] MEDS: PLAVIX 75 MG Tablet PO SCH (11:38)
[2021-02-14] MEDS: REMDESIVIR 100 MG in Sodium Chloride 0.9% 100 ML BAG 100 ML IV SCH (21:29)
[2021-02-14] MEDS: HUMALOG SQ PRN (21:29)
[2021-02-15 06:12] LABS: INR 1.03 (0.8-3.0); PROTIME 12.1 SECONDS (9.4-12.5)
[2021-02-15 06:26] LABS: ALBUMIN 3.5 g/dL (3.5-5.0); ALKALINE PHOSPHATASE 56 U/L (38-126); ANION GAP 14.2 MEQ/L (5-15); BLOOD UREA NITROGEN 27 mg/dL (9-20); CHLORIDE 95 mmol/L (98-107); Calcium 8.5 mg/dL (8.4-10.2); Carbon Dioxide 30 mmol/L (22-30); Creatinine 1 1.04 mg/dL (0.66-1.25); EST GLOMERULAR FILTRATION RATE > 60.0 ML/MIN; Glucose 162 mg/dL (74-106); Potassium 3.3 mmol/L (3.5-5.1); SGOT/AST 57 U/L (17-59); SGPT/ALT 29 U/L (0-50); SODIUM 135 mmol/L (137-145); Total Protein 6.7 g/dL (6.3-8.2)
[2021-02-15] MEDS: Glucophage 500 MG PO SCH ×2 (07:39→17:11)
--- NOTE | 2021-02-15 08:34 | XRAY ---
Indication: Positive Covid 19. Comparison: One day earlier. Portable chest better inflated, probably explaining minimally improved diffuse bilateral patchy airspace disease. Heart not enlarged again with left hilar calcified nodes. No new cardiopulmonary abnormalities.
[2021-02-15] MEDS ORDERED: D5w/0.45NS W/ 40MEQ KCl 1000 Ml 1,000 ML IV SCH (10:30)
[2021-02-15] MEDS: DECADRON 10MG INJ. IV SCH (10:52)
[2021-02-15] MEDS: Pepcid 20 MG VIAL IV SCH ×2 (10:52→21:15)
[2021-02-15] MEDS: hydroDIURIL 25 MG PO SCH (10:53)
[2021-02-15] MEDS: PLAVIX 75 MG Tablet PO SCH (10:53)
[2021-02-15] MEDS: SYNTHROID 25 MCG PO SCH (10:53)
[2021-02-15] MEDS: Lantus Insulin SQ SCH (10:53)
[2021-02-15] MEDS: ENOXAPARIN SODIUM SQ SCH (10:53)
[2021-02-15] MEDS: Protonix 40MG Tablet PO SCH ×2 (10:53→21:15)
[2021-02-15] MEDS: OLUMIANT PO SCH (10:53)
[2021-02-15] MEDS: NORVASC 5 MG PO SCH (10:53)
[2021-02-15] MEDS: ZOCOR 20MG PO SCH (10:53)
[2021-02-15] MEDS: ECOTRIN 81 MG PO SCH (11:39)
[2021-02-15] MEDS: QUESTRAN Light 4 GM Packet PO SCH (12:01)
[2021-02-15] MEDS: REMDESIVIR 100 MG in Sodium Chloride 0.9% 100 ML BAG 100 ML IV SCH (21:15)
[2021-02-15] MEDS: HUMALOG SQ PRN (22:00)
[2021-02-16 05:44] LABS: ALBUMIN 3.1 g/dL (3.5-5.0); ALKALINE PHOSPHATASE 48 U/L (38-126); ANION GAP 10.5 MEQ/L (5-15); BLOOD UREA NITROGEN 25 mg/dL (9-20); CHLORIDE 96 mmol/L (98-107); Calcium 8.4 mg/dL (8.4-10.2); Carbon Dioxide 29 mmol/L (22-30); Creatinine 1 0.93 mg/dL (0.66-1.25); EST GLOMERULAR FILTRATION RATE > 60.0 ML/MIN; Glucose 110 mg/dL (74-106); INR 1.03 (0.8-3.0); PROTIME 12.2 SECONDS (9.4-12.5); Potassium 3.2 mmol/L (3.5-5.1); SGOT/AST 51 U/L (17-59); SGPT/ALT 26 U/L (0-50); SODIUM 132 mmol/L (137-145); Total Protein 5.9 g/dL (6.3-8.2)
[2021-02-16] MEDS: Glucophage 500 MG PO SCH ×2 (08:38→17:53)
[2021-02-16] MEDS: Protonix 40MG Tablet PO SCH ×2 (10:19→21:26)
[2021-02-16] MEDS: OLUMIANT PO SCH (10:19)
[2021-02-16] MEDS: PLAVIX 75 MG Tablet PO SCH (10:19)
[2021-02-16] MEDS: hydroDIURIL 25 MG PO SCH (10:19)
[2021-02-16] MEDS: SYNTHROID 25 MCG PO SCH (10:19)
[2021-02-16] MEDS: NORVASC 5 MG PO SCH (10:20)
[2021-02-16] MEDS: Lantus Insulin SQ SCH (10:20)
[2021-02-16] MEDS: Pepcid 20 MG VIAL IV SCH ×2 (10:20→21:26)
[2021-02-16] MEDS: DECADRON 10MG INJ. IV SCH (10:20)
[2021-02-16] MEDS: ZOCOR 20MG PO SCH (10:20)
[2021-02-16] MEDS: ENOXAPARIN SODIUM SQ SCH (10:21)
[2021-02-16] MEDS ORDERED: QUESTRAN Light 4 GM Packet PO SCH (10:30)
[2021-02-16] MEDS: QUESTRAN Light 4 GM Packet PO SCH (10:33)
[2021-02-16] MEDS: HUMALOG SQ PRN (21:26)
[2021-02-16] MEDS: REMDESIVIR 100 MG in Sodium Chloride 0.9% 100 ML BAG 100 ML IV SCH (21:26)
[2021-02-17 06:41] LABS: INR 1.02 (0.8-3.0)
[2021-02-17 06:48] LABS: ALBUMIN 3.4 g/dL (3.5-5.0); ALKALINE PHOSPHATASE 55 U/L (38-126); ANION GAP 13.8 MEQ/L (5-15); BLOOD UREA NITROGEN 30 mg/dL (9-20); CHLORIDE 97 mmol/L (98-107); Carbon Dioxide 27 mmol/L (22-30); Creatinine 1 1.11 mg/dL (0.66-1.25); EST GLOMERULAR FILTRATION RATE > 60.0 ML/MIN; Glucose 115 mg/dL (74-106); Potassium 3.4 mmol/L (3.5-5.1); SGOT/AST 55 U/L (17-59); SGPT/ALT 26 U/L (0-50); SODIUM 135 mmol/L (137-145); Total Protein 6.4 g/dL (6.3-8.2)
--- NOTE | 2021-02-17 08:58 | XRAY ---
Indication: Follow-up positive Covid 19. Comparison: February 15, 2021. Portable chest unchanged again demonstrating diffuse bilateral patchy airspace disease without consolidation/large effusion. Heart not enlarged. No new cardiopulmonary abnormalities.
[2021-02-17] MEDS: Glucophage 500 MG PO SCH ×2 (09:27→17:54)
[2021-02-17] MEDS: PLAVIX 75 MG Tablet PO SCH (10:08)
[2021-02-17] MEDS: NORVASC 5 MG PO SCH (10:09)
[2021-02-17] MEDS: OLUMIANT PO SCH (10:09)
[2021-02-17] MEDS: Pepcid 20 MG VIAL IV SCH ×2 (10:09→22:47)
[2021-02-17] MEDS: DECADRON 10MG INJ. IV SCH (10:09)
[2021-02-17] MEDS: hydroDIURIL 25 MG PO SCH (10:09)
[2021-02-17] MEDS: Protonix 40MG Tablet PO SCH ×2 (10:09→22:47)
[2021-02-17] MEDS: ZOCOR 20MG PO SCH (10:09)
[2021-02-17] MEDS: SYNTHROID 25 MCG PO SCH (10:09)
[2021-02-17] MEDS: Lantus Insulin SQ SCH (10:09)
[2021-02-17] MEDS: ENOXAPARIN SODIUM SQ SCH (10:11)
[2021-02-17] MEDS: QUESTRAN Light 4 GM Packet PO SCH (13:45)
[2021-02-17] MEDS: REMDESIVIR 100 MG in Sodium Chloride 0.9% 100 ML BAG 100 ML IV SCH (22:47)
[2021-02-18 06:53] LABS: Hematocrit 49.9 % (42-50); Hemoglobin 17.3 gm/dl (12.5-18.0); Mean Cell Volume 79.2 fl (78-100); Mean Corpuscular Hemoglobin 27.5 pg (26-32); Mean Corpuscular Hgb Concent. 34.7 g/dl (32-36); Mean Platelet Volume 10.8 fl (7.5-11.0); Platelet Count 304 K/mm3 (150-450); Red Cell Distribution Width 13.8 % (11.5-14.0); White Blood Count 9.8 K/mm3 (4.0-10.5)
[2021-02-18 07:01] LABS: INR 1.15 (0.8-3.0); PROTIME 13.6 SECONDS (9.4-12.5)
[2021-02-18 07:07] LABS: ALBUMIN 3.2 g/dL (3.5-5.0); ALKALINE PHOSPHATASE 49 U/L (38-126); ANION GAP 12.5 MEQ/L (5-15); BLOOD UREA NITROGEN 29 mg/dL (9-20); CHLORIDE 99 mmol/L (98-107); Calcium 8.5 mg/dL (8.4-10.2); Carbon Dioxide 25 mmol/L (22-30); Creatinine 1 1.06 mg/dL (0.66-1.25); EST GLOMERULAR FILTRATION RATE > 60.0 ML/MIN; Glucose 74 mg/dL (74-106); Potassium 3.3 mmol/L (3.5-5.1); SGOT/AST 58 U/L (17-59); SGPT/ALT 24 U/L (0-50); SODIUM 134 mmol/L (137-145); Total Protein 6.1 g/dL (6.3-8.2)
[2021-02-18] MEDS: Glucophage 500 MG PO SCH ×2 (08:11→17:19)
[2021-02-18] MEDS: ENOXAPARIN SODIUM SQ SCH (10:48)
[2021-02-18] MEDS: DECADRON 10MG INJ. IV SCH ×2 (10:48→11:23)
[2021-02-18] MEDS: Lantus Insulin SQ SCH (10:49)
[2021-02-18] MEDS: hydroDIURIL 25 MG PO SCH (10:49)
[2021-02-18] MEDS: Pepcid 20 MG VIAL IV SCH ×2 (10:49→22:12)
[2021-02-18] MEDS: ZOCOR 20MG PO SCH (10:49)
[2021-02-18] MEDS: Protonix 40MG Tablet PO SCH ×2 (10:49→22:12)
[2021-02-18] MEDS: OLUMIANT PO SCH (10:49)
[2021-02-18] MEDS: QUESTRAN Light 4 GM Packet PO SCH (10:50)
[2021-02-18] MEDS: PLAVIX 75 MG Tablet PO SCH (10:50)
[2021-02-18] MEDS: SYNTHROID 25 MCG PO SCH (10:50)
[2021-02-18] MEDS: NORVASC 5 MG PO SCH (10:50)
[2021-02-18] MEDS: HUMALOG SQ PRN ×2 (17:19→22:13)
--- NOTE | 2021-02-18 19:25 | XRAY ---
Indication: Follow-up Covid 19. Comparison: One day earlier. Portable chest demonstrates grossly stable diffuse bilateral patchy airspace disease without consolidation/large effusion. Heart not enlarged. No new cardiopulmonary abnormalities.
[2021-02-18] MEDS: REMDESIVIR 100 MG in Sodium Chloride 0.9% 100 ML BAG 100 ML IV SCH (22:12)
[2021-02-19] MEDS: Lactated Ringers 1,000 ML IV SCH ×3 (07:13→16:29)
[2021-02-19 07:42] LABS: ALKALINE PHOSPHATASE 44 U/L (38-126); ANION GAP 10.5 MEQ/L (5-15); BLOOD UREA NITROGEN 28 mg/dL (9-20); CHLORIDE 99 mmol/L (98-107); Calcium 8.5 mg/dL (8.4-10.2); Carbon Dioxide 26 mmol/L (22-30); EST GLOMERULAR FILTRATION RATE > 60.0 ML/MIN; Glucose 103 mg/dL (74-106); Potassium 3.6 mmol/L (3.5-5.1); SGOT/AST 49 U/L (17-59); SGPT/ALT 20 U/L (0-50); SODIUM 133 mmol/L (137-145); Total Protein 5.8 g/dL (6.3-8.2)
[2021-02-19 08:15] LABS: Hemoglobin 16.4 gm/dl (12.5-18.0); Mean Cell Volume 80.5 fl (78-100); Mean Corpuscular Hemoglobin 28.1 pg (26-32); Mean Corpuscular Hgb Concent. 34.9 g/dl (32-36); Platelet Count 338 K/mm3 (150-450); Red Blood Count 5.84 M/mm3 (4.1-5.6); Red Cell Distribution Width 13.7 % (11.5-14.0); White Blood Count 9.5 K/mm3 (4.0-10.5)
[2021-02-19] MEDS: Glucophage 500 MG PO SCH ×2 (08:33→16:29)
[2021-02-19] MEDS: hydroDIURIL 25 MG PO SCH (09:18)
[2021-02-19] MEDS: Lantus Insulin SQ SCH (09:18)
[2021-02-19] MEDS: Protonix 40MG Tablet PO SCH ×2 (09:18→22:25)
[2021-02-19] MEDS: ENOXAPARIN SODIUM SQ SCH (09:18)
[2021-02-19] MEDS: ZOCOR 20MG PO SCH (09:18)
[2021-02-19] MEDS: PLAVIX 75 MG Tablet PO SCH (09:18)
[2021-02-19] MEDS: NORVASC 5 MG PO SCH (09:18)
[2021-02-19] MEDS: SYNTHROID 25 MCG PO SCH (09:18)
[2021-02-19] MEDS: OLUMIANT PO SCH (09:18)
[2021-02-19] MEDS: Pepcid 20 MG VIAL IV SCH ×2 (09:19→22:25)
[2021-02-19] MEDS: QUESTRAN Light 4 GM Packet PO SCH (09:19)
[2021-02-19] MEDS: DECADRON 10MG INJ. IV SCH (09:19)
[2021-02-19] MEDS: Ativan 1 MG PO PRN (09:29)
[2021-02-19] MEDS: REMDESIVIR 100 MG in Sodium Chloride 0.9% 100 ML BAG 100 ML IV SCH (22:25)
[2021-02-19] MEDS: HUMALOG SQ PRN (22:26)
[2021-02-20 06:03] LABS: Hematocrit 47.7 % (42-50); Hemoglobin 16.4 gm/dl (12.5-18.0); Mean Cell Volume 81.1 fl (78-100); Mean Corpuscular Hemoglobin 27.9 pg (26-32); Mean Corpuscular Hgb Concent. 34.4 g/dl (32-36); Mean Platelet Volume 10.8 fl (7.5-11.0); Platelet Count 413 K/mm3 (150-450); Red Blood Count 5.88 M/mm3 (4.1-5.6); Red Cell Distribution Width 13.8 % (11.5-14.0); White Blood Count 11.2 K/mm3 (4.0-10.5)
[2021-02-20 06:14] LABS: ALBUMIN 3.1 g/dL (3.5-5.0); ALKALINE PHOSPHATASE 46 U/L (38-126); ANION GAP 11.8 MEQ/L (5-15); BLOOD UREA NITROGEN 32 mg/dL (9-20); CHLORIDE 99 mmol/L (98-107); Calcium 8.4 mg/dL (8.4-10.2); Carbon Dioxide 28 mmol/L (22-30); Creatinine 1 1.15 mg/dL (0.66-1.25); EST GLOMERULAR FILTRATION RATE > 60.0 ML/MIN; Glucose 71 mg/dL (74-106); Potassium 3.6 mmol/L (3.5-5.1); SGOT/AST 44 U/L (17-59); SGPT/ALT 19 U/L (0-50); SODIUM 135 mmol/L (137-145); Total Protein 5.9 g/dL (6.3-8.2)
[2021-02-20] MEDS: Glucophage 500 MG PO SCH ×2 (09:04→17:24)
[2021-02-20] MEDS: Protonix 40MG Tablet PO SCH ×2 (11:10→22:26)
[2021-02-20] MEDS: PLAVIX 75 MG Tablet PO SCH (11:10)
[2021-02-20] MEDS: ENOXAPARIN SODIUM SQ SCH (11:10)
[2021-02-20] MEDS: ZOCOR 20MG PO SCH (11:10)
[2021-02-20] MEDS: SYNTHROID 25 MCG PO SCH (11:10)
[2021-02-20] MEDS: OLUMIANT PO SCH (11:10)
[2021-02-20] MEDS: NORVASC 5 MG PO SCH (11:10)
[2021-02-20] MEDS: hydroDIURIL 25 MG PO SCH (11:10)
[2021-02-20] MEDS: DECADRON 10MG INJ. IV SCH (11:11)
[2021-02-20] MEDS: QUESTRAN Light 4 GM Packet PO SCH (11:11)
[2021-02-20] MEDS: Pepcid 20 MG VIAL IV SCH ×2 (11:11→22:26)
[2021-02-20] MEDS: Lantus Insulin SQ SCH (11:19)
[2021-02-20] MEDS: Ativan 1 MG PO PRN (22:26)
[2021-02-20] MEDS: REMDESIVIR 100 MG in Sodium Chloride 0.9% 100 ML BAG 100 ML IV SCH (22:26)
[2021-02-20] MEDS: HUMALOG SQ PRN (23:54)
[2021-02-21 07:35] LABS: Hematocrit 46.7 % (42-50); Hemoglobin 16.3 gm/dl (12.5-18.0); Mean Cell Volume 80.2 fl (78-100); Mean Corpuscular Hgb Concent. 34.9 g/dl (32-36); Mean Platelet Volume 10.6 fl (7.5-11.0); Platelet Count 420 K/mm3 (150-450); Red Blood Count 5.82 M/mm3 (4.1-5.6); Red Cell Distribution Width 13.6 % (11.5-14.0); White Blood Count 12.1 K/mm3 (4.0-10.5)
[2021-02-21] MEDS: ENOXAPARIN SODIUM SQ SCH (09:16)
[2021-02-21] MEDS: PLAVIX 75 MG Tablet PO SCH (09:17)
[2021-02-21] MEDS: hydroDIURIL 25 MG PO SCH (09:17)
[2021-02-21] MEDS: Pepcid 20 MG VIAL IV SCH ×2 (09:17→21:02)
[2021-02-21] MEDS: Protonix 40MG Tablet PO SCH ×2 (09:17→21:02)
[2021-02-21] MEDS: ZOCOR 20MG PO SCH (09:17)
[2021-02-21] MEDS: QUESTRAN Light 4 GM Packet PO SCH (09:17)
[2021-02-21] MEDS: SYNTHROID 25 MCG PO SCH (09:17)
[2021-02-21] MEDS: NORVASC 5 MG PO SCH (09:17)
[2021-02-21] MEDS: Glucophage 500 MG PO SCH ×2 (09:18→18:19)
[2021-02-21] MEDS: OLUMIANT PO SCH (09:18)
[2021-02-21] MEDS: DECADRON 10MG INJ. IV SCH (09:18)
--- NOTE | 2021-02-21 11:00 | XRAY ---
Indication: Elevated WBC. Comparison: February 18, 2021. Portable chest less inflated with grossly stable diffuse bilateral air space disease. Again no consolidation/large effusion. Heart not enlarged. No new cardiopulmonary abnormalities.
[2021-02-21] MEDS: Lantus Insulin SQ SCH (11:45)
[2021-02-21] MEDS: Lactated Ringers 1,000 ML IV SCH ×2 (20:13→20:14)
[2021-02-21] MEDS: Ativan 1 MG PO PRN (21:02)
[2021-02-21] MEDS: HUMALOG SQ PRN (21:02)
[2021-02-21] MEDS: REMDESIVIR 100 MG in Sodium Chloride 0.9% 100 ML BAG 100 ML IV SCH (21:03)
[2021-02-22 05:08] LABS: Absolute Neutrophil Ct (ANC) 11.25 (1.4-6.9); BASOPHIL % 0.1 % (0.0-0.4); Basophil (Absolute #) 0.02 (0-0.4); Eosinophil % 0.1 % (0.00-5.0); Eosinophil (Absolute #) 0.01 (0-0.5); Hematocrit 45.9 % (42-50); Hemoglobin 15.8 gm/dl (12.5-18.0); Lymphocyte (Absolute #) 1.09 (1.0-4.6); Lymphocytes % 8.1 % (24.0-44.0); Mean Cell Volume 80.4 fl (78-100); Mean Corpuscular Hemoglobin 27.7 pg (26-32); Mean Corpuscular Hgb Concent. 34.4 g/dl (32-36); Mean Platelet Volume 10.6 fl (7.5-11.0); Monocyte (Absolute #) 1.06 (0.0-1.3); Monocytes % 7.9 % (0.0-12.0); Neutrophil % 83.8 % (36.0-66.0); Platelet Count 403 K/mm3 (150-450); Red Blood Count 5.71 M/mm3 (4.1-5.6); Red Cell Distribution Width 13.5 % (11.5-14.0); White Blood Count 13.4 K/mm3 (4.0-10.5)
[2021-02-22 05:24] LABS: ALKALINE PHOSPHATASE 58 U/L (38-126); ANION GAP 11.2 MEQ/L (5-15); BLOOD UREA NITROGEN 25 mg/dL (9-20); CHLORIDE 97 mmol/L (98-107); Calcium 8.2 mg/dL (8.4-10.2); Carbon Dioxide 27 mmol/L (22-30); Creatinine 1 1.06 mg/dL (0.66-1.25); EST GLOMERULAR FILTRATION RATE > 60.0 ML/MIN; Glucose 214 mg/dL (74-106); Potassium 3.7 mmol/L (3.5-5.1); SGOT/AST 29 U/L (17-59); SGPT/ALT 21 U/L (0-50); SODIUM 131 mmol/L (137-145); Total Protein 5.7 g/dL (6.3-8.2)
[2021-02-22] MEDS: Glucophage 500 MG PO SCH ×2 (07:28→18:17)
[2021-02-22] MEDS: Lantus Insulin SQ SCH (09:00)
[2021-02-22] MEDS: PLAVIX 75 MG Tablet PO SCH (09:00)
[2021-02-22] MEDS: ENOXAPARIN SODIUM SQ SCH (09:00)
[2021-02-22] MEDS: Protonix 40MG Tablet PO SCH ×2 (09:00→21:44)
[2021-02-22] MEDS: ZOCOR 20MG PO SCH (09:00)
[2021-02-22] MEDS: DECADRON 10MG INJ. IV SCH (09:01)
[2021-02-22] MEDS: NORVASC 5 MG PO SCH (09:01)
[2021-02-22] MEDS: SYNTHROID 25 MCG PO SCH (09:01)
[2021-02-22] MEDS: hydroDIURIL 25 MG PO SCH (09:01)
[2021-02-22] MEDS: Pepcid 20 MG VIAL IV SCH ×2 (09:02→21:44)
[2021-02-22] MEDS: QUESTRAN Light 4 GM Packet PO SCH (09:04)
--- NOTE | 2021-02-22 09:13 | XRAY ---
Indication: Pneumonia. Positive Covid 19. Comparison: One day earlier. Portable chest again demonstrates diffuse bilateral airspace disease with interval new patchy bibasilar consolidations. Remaining heart and lungs unremarkable.
[2021-02-22] MEDS: ROCEPHIN 1 Gm-D5w 50 ml Bag** 1 G/50 ML IVPB IV SCH (11:21)
[2021-02-22] MEDS: Zithromax 250 MG TABLET PO SCH (11:22)
[2021-02-22] MEDS: HUMALOG SQ PRN (12:19)
[2021-02-22] MEDS: REMDESIVIR 100 MG in Sodium Chloride 0.9% 100 ML BAG 100 ML IV SCH (21:45)
[2021-02-23 06:28] LABS: Hematocrit 45.8 % (42-50); Mean Cell Volume 80.9 fl (78-100); Mean Corpuscular Hemoglobin 28.3 pg (26-32); Mean Corpuscular Hgb Concent. 34.9 g/dl (32-36); Mean Platelet Volume 10.9 fl (7.5-11.0); Platelet Count 376 K/mm3 (150-450); Red Blood Count 5.66 M/mm3 (4.1-5.6); Red Cell Distribution Width 13.5 % (11.5-14.0); White Blood Count 15.1 K/mm3 (4.0-10.5)
[2021-02-23 06:47] LABS: ALKALINE PHOSPHATASE 61 U/L (38-126); ANION GAP 10.2 MEQ/L (5-15); BLOOD UREA NITROGEN 23 mg/dL (9-20); CHLORIDE 95 mmol/L (98-107); Calcium 8.4 mg/dL (8.4-10.2); Carbon Dioxide 28 mmol/L (22-30); Creatinine 1 1.07 mg/dL (0.66-1.25); EST GLOMERULAR FILTRATION RATE > 60.0 ML/MIN; Glucose 156 mg/dL (74-106); Potassium 3.6 mmol/L (3.5-5.1); SGOT/AST 36 U/L (17-59); SGPT/ALT 20 U/L (0-50); SODIUM 130 mmol/L (137-145); Total Protein 5.7 g/dL (6.3-8.2)
--- NOTE | 2021-02-23 08:45 | XRAY ---
Indication: Cough and short of breath. Positive Covid 19. Multiple contiguous images obtained through the chest without contrast. Comparison: None There is markedly diffuse bilateral consolidating and nonconsolidating airspace disease greatest in both lower lobes. No effusion or pneumothorax. Heart not enlarged. Aorta is minimally arteriosclerotic without aneurysm. [place] left infrahilar and tiny subcarinal calcified nodes. No pathologic mediastinal lymphadenopathy. Mild fluid distended esophagus presumed from gastroesophageal reflux. Bony thorax intact with mild degenerative changes throughout the spine. Limited upper abdomen demonstrates markedly food/fluid distended stomach, splenic calcified granulomas, 3.3 cm right renal cyst, and cholecystectomy clips. Impression: 1. Diffuse bilateral consolidating/nonconsolidating airspace disease. 2. Incidental right renal cyst, gastroesophageal reflux, chronic bony findings, and old granulomatous disease.
--- NOTE | 2021-02-23 09:07 | CONS ---
CONSULT DATE: 02/22/2021 HISTORY: Rodrigo Singh is a 75-year-old male without previous pulmonary problems who has been hospitalized with COVID-19 infection. The patient is being treated per protocol with Remdesivir and oral agent of baricitinib over the past several days. He remains on Oxymizer saturating 92% on about 8 liters. He does continue to have cough which is minimally productive. He appears weak and worn out but not as much short of breath. PAST MEDICAL HISTORY: The patient has history of diabetes type II. He also has history of post-traumatic stress disorder from being a from the [place]. PAST SURGICAL HISTORY: He had hernia surgery, right elbow surgery, cholecystectomy and bilateral knee scopes. PERSONAL AND SOCIAL HISTORY: He is a former smoker. MEDICATIONS: Medications are reviewed. ALLERGIES: NKDA. PHYSICAL EXAMINATION: This is an elderly male who appears weak. Vital signs noted. HEENT: Normocephalic. Oral exam unremarkable. CVS: First and second heart sounds are normal, regular, rhythmic. RESPIRATORY: Shows diminished breath sounds, just few crackles are heard. ABDOMEN: Soft. EXTREMITIES: No edema noted. LABORATORY DATA AND TESTS: White count 13.4, hemoglobin 15.8, hematocrit 46, PLT 403,000. Sodium 131, potassium 3.7, chloride 97, bicarb 27, BUN 25, creatinine 1.0, glucose 214. D-dimer 996. Chest x-ray of 02/22/2021 reviewed, previous x-rays were reviewed as well. ASSESSMENT: This is a 75 year old male admitted with: 1) Acute/chronic hypoxic respiratory failure. 2) Recent COVID-19 infection with viral pneumonia. 3) Basilar infiltrate/atelectasis appears to be more fibrotic than acute. 4) History of diabetes mellitus. RECOMMENDATIONS: 1) The patient appears to have improved from clinical standpoint with some improvement in oxygenation as well. I have advised respiratory to continue weaning supplemental oxygen keeping saturations more than 90%. 2) Advised the patient to spend more time in chair than in bed. If possible, would benefit from rehab standpoint. 3) Will obtain a CT chest without IV contrast to assess the parenchyma better, continue deep vein thrombosis prophylaxis and other supportive care. I will continue to follow. Thank you, Dr. Edwards, for allowing me to participate in the care of your patient.
[2021-02-23] MEDS: ENOXAPARIN SODIUM SQ SCH (09:32)
[2021-02-23] MEDS: hydroDIURIL 25 MG PO SCH (09:32)
[2021-02-23] MEDS: Lantus Insulin SQ SCH (09:32)
[2021-02-23] MEDS: Glucophage 500 MG PO SCH ×2 (09:33→17:05)
[2021-02-23] MEDS: Protonix 40MG Tablet PO SCH ×2 (09:33→22:11)
[2021-02-23] MEDS: ROCEPHIN 1 Gm-D5w 50 ml Bag** 1 G/50 ML IVPB IV SCH (09:33)
[2021-02-23] MEDS: NORVASC 5 MG PO SCH (09:33)
[2021-02-23] MEDS: SYNTHROID 25 MCG PO SCH (09:33)
[2021-02-23] MEDS: PLAVIX 75 MG Tablet PO SCH (09:33)
[2021-02-23] MEDS: Zithromax 250 MG TABLET PO SCH (09:33)
[2021-02-23] MEDS: QUESTRAN Light 4 GM Packet PO SCH (09:34)
[2021-02-23] MEDS: ZOCOR 20MG PO SCH (09:34)
[2021-02-23] MEDS: DECADRON 10MG INJ. IV SCH (09:35)
[2021-02-23] MEDS: Pepcid 20 MG VIAL IV SCH ×2 (09:35→22:12)
--- NOTE | 2021-02-23 13:03 | PROG NOTE ---
Events noted. DATE: 02/23/2021 HISTORY: The patient remains on supplemental oxygen. Vital signs noted. PHYSICAL EXAMINATION: HEENT: Normocephalic. Oral exam limited. CVS: First and second heart sounds are normal, regular, rhythmic. RESPIRATORY: Shows diminished breath sounds, crackles are heard. ABDOMEN: Soft. EXTREMITIES: No edema is noted. LABORATORY DATA AND TESTS: CT chest reviewed. ASSESSMENT: This is a 75 year old male admitted with: 1) Chronic hypoxic respiratory failure. 2) Viral pneumonitis fairly diffuse ground glass pattern particularly involving lower lobes but also not sparing upper lobes from the recent COVID-19 infection. RECOMMENDATIONS: 1) Continue present treatment. 2) The patient appears to be getting frustrated with lack of immediate clinical response. Explained to him regarding CT findings, gradual steroid taper, continue physical therapy, out of bed to chair as tolerated and deep vein thrombosis prophylaxis. I will continue to follow.
[2021-02-23] MEDS: HUMALOG SQ PRN ×2 (17:29→22:12)
[2021-02-23] MEDS: Ativan 1 MG PO PRN (22:11)
[2021-02-24] MEDS: Glucophage 500 MG PO SCH ×2 (08:17→16:38)
[2021-02-24] MEDS: Lantus Insulin SQ SCH (10:44)
[2021-02-24] MEDS: ZOCOR 20MG PO SCH (10:44)
[2021-02-24] MEDS: Zithromax 250 MG TABLET PO SCH (10:44)
[2021-02-24] MEDS: ENOXAPARIN SODIUM SQ SCH (10:44)
[2021-02-24] MEDS: Pepcid 20 MG VIAL IV SCH ×2 (10:45→21:34)
[2021-02-24] MEDS: Protonix 40MG Tablet PO SCH ×2 (10:45→21:34)
[2021-02-24] MEDS: NORVASC 5 MG PO SCH (10:45)
[2021-02-24] MEDS: SYNTHROID 25 MCG PO SCH (10:45)
[2021-02-24] MEDS: hydroDIURIL 25 MG PO SCH (10:45)
[2021-02-24] MEDS: PLAVIX 75 MG Tablet PO SCH (10:45)
[2021-02-24] MEDS: QUESTRAN Light 4 GM Packet PO SCH (10:46)
[2021-02-24] MEDS: DECADRON 10MG INJ. IV SCH (10:46)
[2021-02-24] MEDS: ROCEPHIN 1 Gm-D5w 50 ml Bag** 1 G/50 ML IVPB IV SCH (11:14)
--- NOTE | 2021-02-24 12:02 | XRAY ---
Indication: Cough and short of breath. Positive Covid 19. Comparison: February 22, 2021. Portable less inflated with grossly stable diffuse bilateral consolidating/nonconsolidating airspace disease. Remaining heart and lungs unremarkable.
[2021-02-24] MEDS: HUMALOG SQ PRN ×3 (12:21→21:34)
[2021-02-24] MEDS: Ativan 1 MG PO PRN (21:34)
[2021-02-25] MEDS: Ativan 1 MG PO PRN ×2 (05:46→21:32)
[2021-02-25 06:37] LABS: Hemoglobin 16.3 gm/dl (12.5-18.0); Mean Cell Volume 81.4 fl (78-100); Mean Corpuscular Hemoglobin 27.6 pg (26-32); Platelet Count 375 K/mm3 (150-450); Red Cell Distribution Width 13.9 % (11.5-14.0); White Blood Count 19.1 K/mm3 (4.0-10.5)
[2021-02-25 06:59] LABS: ALBUMIN 3.3 g/dL (3.5-5.0); ALKALINE PHOSPHATASE 65 U/L (38-126); ANION GAP 12.5 MEQ/L (5-15); BLOOD UREA NITROGEN 25 mg/dL (9-20); CHLORIDE 96 mmol/L (98-107); Calcium 8.6 mg/dL (8.4-10.2); Carbon Dioxide 27 mmol/L (22-30); Creatinine 1 1.08 mg/dL (0.66-1.25); EST GLOMERULAR FILTRATION RATE > 60.0 ML/MIN; Glucose 197 mg/dL (74-106); Potassium 3.8 mmol/L (3.5-5.1); SGOT/AST 24 U/L (17-59); SGPT/ALT 21 U/L (0-50); SODIUM 132 mmol/L (137-145); Total Protein 6.1 g/dL (6.3-8.2)
[2021-02-25] MEDS: HUMALOG SQ PRN ×3 (07:32→21:53)
[2021-02-25] MEDS: Glucophage 500 MG PO SCH ×2 (07:32→17:04)
[2021-02-25] MEDS: ROCEPHIN 1 Gm-D5w 50 ml Bag** 1 G/50 ML IVPB IV SCH (10:32)
[2021-02-25] MEDS: ZOCOR 20MG PO SCH (10:32)
[2021-02-25] MEDS: ENOXAPARIN SODIUM SQ SCH (10:32)
[2021-02-25] MEDS: NORVASC 5 MG PO SCH (10:33)
[2021-02-25] MEDS: SYNTHROID 25 MCG PO SCH (10:33)
[2021-02-25] MEDS: PLAVIX 75 MG Tablet PO SCH (10:33)
[2021-02-25] MEDS: hydroDIURIL 25 MG PO SCH (10:33)
[2021-02-25] MEDS: Zithromax 250 MG TABLET PO SCH (10:33)
[2021-02-25] MEDS: Protonix 40MG Tablet PO SCH ×2 (10:34→21:31)
[2021-02-25] MEDS: DECADRON 10MG INJ. IV SCH (10:34)
[2021-02-25] MEDS: Lantus Insulin SQ SCH (10:34)
[2021-02-25] MEDS: Pepcid 20 MG VIAL IV SCH ×2 (10:34→21:32)
[2021-02-25] MEDS: QUESTRAN Light 4 GM Packet PO SCH (10:36)
[2021-02-26 06:02] LABS: Hematocrit 43.1 % (42-50); Hemoglobin 14.8 gm/dl (12.5-18.0); Mean Cell Volume 81.6 fl (78-100); Mean Corpuscular Hgb Concent. 34.3 g/dl (32-36); Mean Platelet Volume 10.8 fl (7.5-11.0); Platelet Count 292 K/mm3 (150-450); Red Blood Count 5.28 M/mm3 (4.1-5.6); Red Cell Distribution Width 13.5 % (11.5-14.0); White Blood Count 12.4 K/mm3 (4.0-10.5)
[2021-02-26 06:51] LABS: ALBUMIN 2.8 g/dL (3.5-5.0); ALKALINE PHOSPHATASE 80 U/L (38-126); ANION GAP 9.9 MEQ/L (5-15); BLOOD UREA NITROGEN 21 mg/dL (9-20); CHLORIDE 95 mmol/L (98-107); Calcium 8.3 mg/dL (8.4-10.2); Carbon Dioxide 29 mmol/L (22-30); Creatinine 1 0.99 mg/dL (0.66-1.25); EST GLOMERULAR FILTRATION RATE > 60.0 ML/MIN; Glucose 137 mg/dL (74-106); Potassium 3.6 mmol/L (3.5-5.1); SGOT/AST 29 U/L (17-59); SGPT/ALT 21 U/L (0-50); SODIUM 131 mmol/L (137-145); Total Protein 5.5 g/dL (6.3-8.2)
[2021-02-26] MEDS: Glucophage 500 MG PO SCH ×2 (07:50→17:21)
[2021-02-26] MEDS: SYNTHROID 25 MCG PO SCH (10:55)
[2021-02-26] MEDS: PLAVIX 75 MG Tablet PO SCH (10:55)
[2021-02-26] MEDS: Protonix 40MG Tablet PO SCH ×2 (10:55→21:38)
[2021-02-26] MEDS: hydroDIURIL 25 MG PO SCH (10:55)
[2021-02-26] MEDS: ENOXAPARIN SODIUM SQ SCH (10:55)
[2021-02-26] MEDS: ZOCOR 20MG PO SCH (10:55)
[2021-02-26] MEDS: Zithromax 250 MG TABLET PO SCH (10:55)
[2021-02-26] MEDS: NORVASC 5 MG PO SCH (10:56)
[2021-02-26] MEDS: Pepcid 20 MG VIAL IV SCH ×2 (10:56→21:38)
[2021-02-26] MEDS: DECADRON 10MG INJ. IV SCH (10:56)
[2021-02-26] MEDS: QUESTRAN Light 4 GM Packet PO SCH (10:57)
[2021-02-26] MEDS: ROCEPHIN 1 Gm-D5w 50 ml Bag** 1 G/50 ML IVPB IV SCH (10:58)
[2021-02-26] MEDS: Lantus Insulin SQ SCH (11:07)
[2021-02-26] MEDS: HUMALOG SQ PRN ×3 (12:38→21:38)
[2021-02-26] MEDS: Ativan 1 MG PO PRN (21:37)
[2021-02-27 06:39] LABS: Hematocrit 42.8 % (42-50); Hemoglobin 14.7 gm/dl (12.5-18.0); Mean Cell Volume 81.5 fl (78-100); Mean Corpuscular Hgb Concent. 34.3 g/dl (32-36); Mean Platelet Volume 10.9 fl (7.5-11.0); Platelet Count 290 K/mm3 (150-450); Red Blood Count 5.25 M/mm3 (4.1-5.6); Red Cell Distribution Width 13.5 % (11.5-14.0); White Blood Count 11.1 K/mm3 (4.0-10.5)
[2021-02-27 06:48] LABS: ALBUMIN 2.9 g/dL (3.5-5.0); ALKALINE PHOSPHATASE 59 U/L (38-126); ANION GAP 11.8 MEQ/L (5-15); BLOOD UREA NITROGEN 20 mg/dL (9-20); CHLORIDE 96 mmol/L (98-107); Calcium 8.4 mg/dL (8.4-10.2); Carbon Dioxide 29 mmol/L (22-30); Creatinine 1 0.98 mg/dL (0.66-1.25); EST GLOMERULAR FILTRATION RATE > 60.0 ML/MIN; Glucose 146 mg/dL (74-106); Potassium 3.5 mmol/L (3.5-5.1); SGOT/AST 25 U/L (17-59); SGPT/ALT 20 U/L (0-50); SODIUM 133 mmol/L (137-145); Total Protein 5.6 g/dL (6.3-8.2)
[2021-02-27] MEDS: Glucophage 500 MG PO SCH ×2 (07:57→17:18)
--- NOTE | 2021-02-27 10:33 | XRAY ---
Indication: Positive Covid 19. Comparison: February 24, 2021. Portable chest remains slightly underinflated again with diffuse bilateral consolidating/nonconsolidating airspace disease, worsened left base. Heart not enlarged again with incidental left hilar calcified nodes. No new cardiopulmonary abnormalities.
[2021-02-27] MEDS: Lantus Insulin SQ SCH (10:51)
[2021-02-27] MEDS: DECADRON 10MG INJ. IV SCH (10:51)
[2021-02-27] MEDS: ENOXAPARIN SODIUM SQ SCH (10:51)
[2021-02-27] MEDS: Pepcid 20 MG VIAL IV SCH ×2 (10:52→20:44)
[2021-02-27] MEDS: NORVASC 5 MG PO SCH (10:53)
[2021-02-27] MEDS: hydroDIURIL 25 MG PO SCH (10:53)
[2021-02-27] MEDS: SYNTHROID 25 MCG PO SCH (10:53)
[2021-02-27] MEDS: Protonix 40MG Tablet PO SCH ×2 (10:53→20:44)
[2021-02-27] MEDS: PLAVIX 75 MG Tablet PO SCH (10:53)
[2021-02-27] MEDS: ZOCOR 20MG PO SCH (10:53)
[2021-02-27] MEDS: QUESTRAN Light 4 GM Packet PO SCH (10:54)
[2021-02-27] MEDS: ROCEPHIN 1 Gm-D5w 50 ml Bag** 1 G/50 ML IVPB IV SCH (11:00)
[2021-02-27] MEDS: HUMALOG SQ PRN ×3 (12:48→20:44)
[2021-02-27] MEDS: Ativan 1 MG PO PRN (20:44)
[2021-02-28 06:34] LABS: Hematocrit 42.4 % (42-50); Hemoglobin 14.6 gm/dl (12.5-18.0); Mean Cell Volume 81.7 fl (78-100); Mean Corpuscular Hemoglobin 28.1 pg (26-32); Mean Corpuscular Hgb Concent. 34.4 g/dl (32-36); Mean Platelet Volume 10.6 fl (7.5-11.0); Platelet Count 258 K/mm3 (150-450); Red Blood Count 5.19 M/mm3 (4.1-5.6); Red Cell Distribution Width 13.5 % (11.5-14.0); White Blood Count 11.3 K/mm3 (4.0-10.5)
[2021-02-28 07:14] LABS: ANION GAP 11.5 MEQ/L (5-15); Potassium 3.9 mmol/L (3.5-5.1)
[2021-02-28] MEDS: HUMALOG SQ PRN (08:32)
[2021-02-28] MEDS: Glucophage 500 MG PO SCH (08:32)
[2021-02-28] MEDS: Lantus Insulin SQ SCH (11:14)
[2021-02-28] MEDS: DECADRON 10MG INJ. IV SCH (11:14)
[2021-02-28] MEDS: SYNTHROID 25 MCG PO SCH (11:14)
[2021-02-28] MEDS: NORVASC 5 MG PO SCH (11:14)
[2021-02-28] MEDS: PLAVIX 75 MG Tablet PO SCH (11:14)
[2021-02-28] MEDS: Protonix 40MG Tablet PO SCH (11:14)
[2021-02-28] MEDS: Pepcid 20 MG VIAL IV SCH (11:14)
[2021-02-28] MEDS: ZOCOR 20MG PO SCH (11:14)
[2021-02-28] MEDS: ENOXAPARIN SODIUM SQ SCH (11:15)
[2021-02-28] MEDS: hydroDIURIL 25 MG PO SCH (11:15)
[2021-02-28] MEDS: ROCEPHIN 1 Gm-D5w 50 ml Bag** 1 G/50 ML IVPB IV SCH (11:17)
[2021-02-28 12:27] VITALS: BP 122/55
[2021-02-28] MEDS: QUESTRAN Light 4 GM Packet PO SCH (12:49)
--- NOTE | 2021-02-28 14:43 | PROG NOTE ---
CONSULT DATE: 02/28/2021 HISTORY: Rodrigo Singh is a 75 year-old male admitted with COVID-19 infection. The patient was evaluated by me last week on 02/23/2021. He has since done reasonably well. He remains on oxygen at 4 liters saturating 93%. The patient apparently is being discharged home tomorrow. He voices no complaints other than weakness. PHYSICAL EXAMINATION: Vital signs noted. HEENT: Normocephalic. Oral exam limited. NECK: Supple. CVS: First and second heart sounds are normal, regular, rhythmic. RESPIRATORY: Shows diminished breath sounds, occasional crackles are heard. ABDOMEN: Soft. EXTREMITIES: No edema is noted. LABORATORY DATA AND TESTS: Labs reviewed. ASSESSMENT: This is a 75 year old male admitted with: 1) Chronic hypoxic respiratory failure. 2) COVID-19 infection with viral pneumonitis status post treatment. 3) Basilar atelectasis. 4) History of diabetes mellitus. RECOMMENDATIONS: 1) I agree with discharge. 2) The patient has been advised to use supplemental oxygen and increase ambulation as tolerated. 3) I will follow up in outpatient setting in about two weeks' time or earlier as needed.
[2021-02-28 14:46] VITALS: PULSE 90; O2SAT 93
== END 2021-02-28 15:55 | disposition home or self-care (01) | DRG 177 ==
LOC: ED 16:34 → UNDOADMIN 18:20 → MED SURG 18:20
PROVIDERS: ADMIT General Practice; ATTEND General Practice
DX: U07.1 COVID-19 (principal); J12.82 Pneumonia due to coronavirus disease 2019; J96.21 Acute and chronic respiratory failure with hypoxia; R53.1 Weakness; R42 Dizziness and giddiness; I10 Essential (primary) hypertension; E11.9 Type 2 diabetes mellitus without complications; Z20.822 Contact with and (suspected) exposure to COVID-19; Z79.899 Other long term (current) drug therapy
CPT/HCPCS: 36000; 36415; 36600; 71045; 71250; 80051; 80053; 82375; 82728; 82803; 82947; 83036; 83615; 83880; 84145; 84484; 85025; 85027; 85379; 85610; 93005; 93041; 94762; 96374; 99285; 99291; J0696; J1100; J1650; J1817; J2930; U0003; A9270-GY

== ENCOUNTER 2021-03-03 20:51 | Observation (INO) | payer OTHER ==
--- NOTE | 2021-03-03 21:11 | ERPHSYRPT ---
- History of Present Illness Time Seen by Provider: 03/03/21 21:00 Source: patient, EMS Exam Limitations: clinical condition Physician History: This is a 75-year-old white male patient of the [facility] system who tested positive for Covid virus infection on 02/12/2021. Patient was admitted to the hospital here and was discharged to home on 02/28/2021. He was discharged to home on 5 L nasal cannula oxygen. Patient states that even at the time of discharge 3 days ago, he has continued to have shortness of breath and coughing even if he ambulates a short distance. Patient has a history of diabetes, hypertension, hypothyroidism, gastroesophageal reflux disease and PTSD. Patient was brought into the emergency room this evening by EMS. He is having cough and worsening shortness of breath with ambulation. He does not have chest pain. He has no abdominal pain. He denies nausea vomiting or diarrhea. Patient did not ever receive the vaccine for COVID-19 infection Timing/Duration: week(s) Activities at Onset: none Severity of Dyspnea-Max: moderate Severity of Dyspnea-Current: moderate Possible Cause: illness exposure Modifying Factors: Improves With: coughing, exertion Associated Symptoms: cough, No chest pain/discomfort Allergies/Adverse Reactions: No Known Drug Allergies Allergy (Verified 03/03/21 20:53) Home Medications: Amlodipine Besylate 5 mg [Norvasc 5 mg] 5 mg PO DAILY 02/13/21 [History] Aspirin EC 81 mg [Ecotrin 81 mg] 81 mg PO DAILY 02/13/21 [History] Atorvastatin Calcium 80 mg PO DAILY 02/13/21 [History] Clopidogrel Bisulfate 75 mg [PLAVIX 75 MG Tablet] 75 mg PO DAILY 02/13/21 [History] Hydrochlorothiazide 25 mg [hydroDIURIL 25 MG] 25 mg PO DAILY 02/13/21 [History] Insulin Glargine [Lantus Insulin] 24 unit SQ DAILY 02/13/21 [History] Levothyroxine Sodium 25 Mcg [Synthroid 25 Mcg] 25 mcg PO DAILY 02/13/21 [History] Metformin HCl 500 mg [Glucophage 500 MG] 500 mg PO BIDWM 02/13/21 [History] Omeprazole 40 mg PO BID 02/13/21 [History] Hx Tetanus, Diphtheria Vaccination/Date Given: No Hx Influenza Vaccination/Date Given: No Hx Pneumococcal Vaccination/Date Given: Yes Travel Risk - International Travel Have you traveled outside of the country in past 3 weeks: No - Coronavirus Screening Are you exhibiting any of the following symptoms?: Yes Symptoms: Cough: New Onset, Shortness of Breath - Vaccine Status Have you recieved a Covid-19 vaccination: No - Review of Systems Constitutional: No Symptoms, Weakness Eyes: No Symptoms Ears, Nose, & Throat: No Symptoms Respiratory: Cough, Dyspnea Cardiac: No Symptoms, No Chest Pain Abdominal/Gastrointestinal: No Symptoms Genitourinary Symptoms: No Symptoms Musculoskeletal: No Symptoms Skin: No Symptoms Neurological: No Symptoms Psychological: No Symptoms Endocrine: No Symptoms Hematologic/Lymphatic: No Symptoms Immunological/Allergic: No Symptoms All Other Systems: Reviewed and Negative - Past Medical History Pertinent Past Medical History: Yes Neurological History: No Pertinent History Cardiac History: Hypertension Respiratory History: No Pertinent History Endocrine Medical History: Diabetes Type II Other Medical History: PTSD- [place] - Past Surgical History Past Surgical History: Yes Other Surgical History: hernia. right elbow. lenin. bilat knee scope. joint pain R knee - Social History Smoking Status: Former smoker Exposure to second hand smoke: Yes Drug Use: none Patient Lives Alone: No - Nursing Vital Signs Nursing Vital Signs: Initial Vital Signs Temperature 98.1 F 03/03/21 20:52 Pulse Rate 106 H 03/03/21 20:52 Respiratory Rate 30 H 03/03/21 20:52 Blood Pressure 118/79 03/03/21 20:52 O2 Sat by Pulse Oximetry 97 03/03/21 20:52 Pain Scale Pain Intensity 0 - Physical Exam General Appearance: mild distress, alert, anxiety Eye Exam: PERRL/EOMI, eyes nml inspection Ears, Nose, Throat Exam: hearing grossly normal, normal ENT inspection, normal pharynx Neck Exam: normal inspection, non-tender, supple, full range of motion Respiratory Exam: normal breath sounds, lungs clear, respiratory distress, airway intact (Mild), No chest tenderness Cardiovascular/Chest Exam: tachycardia Abdominal/Gastrointestinal Exam: soft, normal bowel sounds, No tenderness Rectal Exam: not done Extremity Exam: non-tender, normal range of motion, normal inspection, normal capillary refill, no calf tenderness, no pedal edema, pelvis stable Neurologic Exam: alert, oriented x 3, cooperative, dehydrogenation operator head II-XII nml as tested, normal mood/affect, nml cerebellar function, nml station & gait, sensation nml Skin Exam: normal color, warm, dry Lymphatic Exam: No adenopathy SpO2 Interpretation: normal O2 Delivery: Room Air - Course Nursing assessment & vital signs reviewed: Yes EKG Interpreted by Me: RATE, Sinus Tach, NORMAL AXIS, NORMAL INTERVALS, NORMAL QRS, NORMAL ST-T, Other (There is no evidence of any acute ischemia on today's EKG. When compared to EKG dated 02/12/2021, there is new onset of tachycardia but it is sinus tachycardia.) Ordered Tests: Active Orders 24 hr Category Date Time Status EKG-ER Only STAT Care 03/03/21 21:13 Active IV Insertion STAT Care 03/03/21 21:13 Active Isolation, Initiate & Maintain STAT Care 03/03/21 21:14 Active Pulse Oximetry (ED) STAT Care 03/03/21 21:13 Active CHEST 1 VIEW (PORTABLE) Stat Exams 03/03/21 21:14 Taken CHEST WITH CONTRAST [CT] Stat Exams 03/03/21 23:20 Taken BLOOD CULTURE Stat Lab 03/03/21 21:50 Received CBC W DIFF Stat Lab 03/03/21 21:50 Completed CMP Stat Lab 03/03/21 21:50 Completed D-DIMER QUANTITATIVE Stat Lab 03/03/21 21:50 Completed Ferritin Stat Lab 03/03/21 21:50 Completed INFLUENZA A+B ALBIN Stat Lab 03/03/21 21:50 Completed LDH-LACTATE DEHYDROGENASE Stat Lab 03/03/21 21:50 Completed Lactic Acid Stat Lab 03/03/21 21:57 Completed Lactic Acid Stat Lab 03/04/21 00:03 Completed Manual Differential NC Stat Lab 03/03/21 21:50 Completed [place] Screen Stat Lab 03/03/21 21:50 Completed TROPONIN Q3H Lab 03/03/21 21:50 Completed TROPONIN Q3H Lab 03/04/21 00:33 Received TROPONIN Q3H Lab 03/04/21 03:30 Ordered TROPONIN Q3H Lab 03/04/21 06:30 Ordered TROPONIN Q3H Lab 03/04/21 09:30 Ordered Respiratory MDI STAT RT 03/03/21 21:15 Active Respiratory Therapy Assessment DAILY RT 03/03/21 21:43 Active Transfer Order Routine Transfer 03/04/21 Ordered Medication Summary Generic Name Dose Route Start Last Admin Trade Name Isaiah PRN Reason Stop Dose Admin Sodium Chloride 1,000 mls @ 100 mls/hr 03/03/21 21:15 03/03/21 21:41 Sodium Chloride 0.9% 1000 Ml IV 04/02/21 21:14 100 mls/hr .Q10H ARLETTE Administration Discontinued Medications Generic Name Dose Route Start Last Admin Trade Name Isaiah PRN Reason Stop Dose Admin Hydrocodone Bitart/Acetaminophen 10 ml 03/03/21 21:15 03/03/21 21:41 Hydrocodone-Acetamin 2.5-108/5 Ml Solution PO 03/03/21 21:16 10 ml STAT STA Administration Hydrocodone Bitart/Acetaminophen Confirm 03/03/21 21:38 Hydrocodone-Acetamin 2.5-108/5 Ml Solution Administered 03/03/21 21:39 Dose 10 ml .ROUTE .STK-MED ONE Albuterol Sulfate 4 puff 03/03/21 21:13 03/03/21 21:36 Ventolin Common Canister IH 03/03/21 21:14 4 puff STAT ONE Administration Dexamethasone Sodium Phosphate 8 mg 03/03/21 21:15 03/03/21 21:42 Decadron 4 Mg Inj IV 03/03/21 21:16 8 mg STAT ONE Administration Dexamethasone Sodium Phosphate Confirm 03/03/21 21:38 Decadron 4 Mg Inj Administered 03/03/21 21:39 Dose 8 mg .ROUTE .STK-MED ONE Enoxaparin Sodium 40 mg 03/03/21 21:16 03/03/21 21:50 Enoxaparin Sodium SQ 03/03/21 21:17 Not Given STAT ONE Enoxaparin Sodium Confirm 03/03/21 21:39 Enoxaparin Sodium Administered 03/03/21 21:40 Dose 80 mg SQ .STK-MED ONE Ondansetron HCl 4 mg 03/03/21 21:13 03/03/21 21:42 Zofran 4 Mg/2 Ml Vial IV 03/03/21 21:14 4 mg STAT STA Administration Ondansetron HCl Confirm 03/03/21 21:38 Zofran 4 Mg/2 Ml Vial Administered 03/03/21 21:39 Dose 4 mg .ROUTE .STK-MED ONE Potassium Chloride 10 meq 03/03/21 23:20 03/03/21 23:26 Klor Con 10 Meq PO 03/03/21 23:21 10 meq STAT ONE Administration Potassium Chloride Confirm 03/03/21 23:26 Klor Con 10 Meq Administered 03/03/21 23:27 Dose 10 meq PO .STK-MED ONE Lab/Rad Data: Laboratory Result Diagrams 03/03/21 21:50 03/03/21 21:50 Laboratory Results 03/04/21 03/03/21 03/03/21 Range/Units 00:03 21:57 21:50 WBC (4.0-10.5) K/mm3 RBC (4.1-5.6) M/mm3 Hgb (12.5-18.0) gm/dl Hct (42-50) % MCV (78-100) fl MCH (26-32) pg MCHC (32-36) g/dl RDW (11.5-14.0) % Plt Count (150-450) K/mm3 MPV (7.5-11.0) fl Segmented Neutrophils (36.-66.) % Lymphocytes (Manual) (24-44) % Monocytes (Manual) (0.0-12.0) % Eosinophils (Manual) (0.00-3.0) % Atypical Lymphocytes % Platelet Estimate (NORMAL) RBC Morphology D-Dimer (215-500) ng/mL Sodium (137-145) mmol/L Potassium (3.5-5.1) mmol/L Chloride (98-107) mmol/L Carbon Dioxide (22-30) mmol/L Anion Gap (5-15) MEQ/L BUN (9-20) mg/dL Creatinine (0.66-1.25) mg/dL Estimated GFR ML/MIN Glucose (74-106) mg/dL Lactic Acid 2.9 H 3.9 H (0.4-2.0) Calcium (8.4-10.2) mg/dL Ferritin (17.9-464) ng/mL Total Bilirubin (0.2-1.3) mg/dL AST (17-59) U/L ALT (0-50) U/L Alkaline Phosphatase (38-126) U/L Lactate Dehydrogenase (120-246) U/L Troponin I (0.000-0.034) ng/mL Serum Total Protein (6.3-8.2) g/dL Albumin (3.5-5.0) g/dL Monoscreen NEGATIVE (Negative) Influenza Type A Ag (NEGATIVE) Influenza Type B Ag (NEGATIVE) Group A Strep Antibody (NEGATIVE) 03/03/21 03/03/21 03/03/21 Range/Units 21:50 21:50 21:50 WBC (4.0-10.5) K/mm3 RBC (4.1-5.6) M/mm3 Hgb (12.5-18.0) gm/dl Hct (42-50) % MCV (78-100) fl MCH (26-32) pg MCHC (32-36) g/dl RDW (11.5-14.0) % Plt Count (150-450) K/mm3 MPV (7.5-11.0) fl Segmented Neutrophils (36.-66.) % Lymphocytes (Manual) (24-44) % Monocytes (Manual) (0.0-12.0) % Eosinophils (Manual) (0.00-3.0) % Atypical Lymphocytes % Platelet Estimate (NORMAL) RBC Morphology D-Dimer (215-500) ng/mL Sodium (137-145) mmol/L Potassium (3.5-5.1) mmol/L Chloride (98-107) mmol/L Carbon Dioxide (22-30) mmol/L Anion Gap (5-15) MEQ/L BUN (9-20) mg/dL Creatinine (0.66-1.25) mg/dL Estimated GFR ML/MIN Glucose (74-106) mg/dL Lactic Acid (0.4-2.0) Calcium (8.4-10.2) mg/dL Ferritin 1070 H (17.9-464) ng/mL Total Bilirubin (0.2-1.3) mg/dL AST (17-59) U/L ALT (0-50) U/L Alkaline Phosphatase (38-126) U/L Lactate Dehydrogenase (120-246) U/L Troponin I < 0.012 (0.000-0.034) ng/mL Serum Total Protein (6.3-8.2) g/dL Albumin (3.5-5.0) g/dL Monoscreen (Negative) Influenza Type A Ag (NEGATIVE) Influenza Type B Ag (NEGATIVE) Group A Strep Antibody NOT DETECTED (NEGATIVE) 03/03/21 03/03/21 03/03/21 Range/Units 21:50 21:50 21:50 WBC (4.0-10.5) K/mm3 RBC (4.1-5.6) M/mm3 Hgb (12.5-18.0) gm/dl Hct (42-50) % MCV (78-100) fl MCH (26-32) pg MCHC (32-36) g/dl RDW (11.5-14.0) % Plt Count (150-450) K/mm3 MPV (7.5-11.0) fl Segmented Neutrophils (36.-66.) % Lymphocytes (Manual) (24-44) % Monocytes (Manual) (0.0-12.0) % Eosinophils (Manual) (0.00-3.0) % Atypical Lymphocytes % Platelet Estimate (NORMAL) RBC Morphology D-Dimer 1169 H* (215-500) ng/mL Sodium 134 L (137-145) mmol/L Potassium 3.3 L (3.5-5.1) mmol/L Chloride 95 L (98-107) mmol/L Carbon Dioxide 29 (22-30) mmol/L Anion Gap 13.2 (5-15) MEQ/L BUN 21 H (9-20) mg/dL Creatinine 1.34 H (0.66-1.25) mg/dL Estimated GFR 54.9 ML/MIN Glucose 317 H (74-106) mg/dL Lactic Acid (0.4-2.0) Calcium 8.8 (8.4-10.2) mg/dL Ferritin (17.9-464) ng/mL Total Bilirubin 0.70 (0.2-1.3) mg/dL AST 27 (17-59) U/L ALT 33 (0-50) U/L Alkaline Phosphatase 118 (38-126) U/L Lactate Dehydrogenase 193 (120-246) U/L Troponin I (0.000-0.034) ng/mL Serum Total Protein 6.5 (6.3-8.2) g/dL Albumin 3.6 (3.5-5.0) g/dL Monoscreen (Negative) Influenza Type A Ag NEGATIVE (NEGATIVE) Influenza Type B Ag NEGATIVE (NEGATIVE) Group A Strep Antibody (NEGATIVE) 03/03/21 Range/Units 21:50 WBC 11.2 H (4.0-10.5) K/mm3 RBC 6.20 H* (4.1-5.6) M/mm3 Hgb 17.3 (12.5-18.0) gm/dl Hct 50.7 H (42-50) % MCV 81.8 (78-100) fl MCH 27.9 (26-32) pg MCHC 34.1 (32-36) g/dl RDW 14.7 H (11.5-14.0) % Plt Count 214 (150-450) K/mm3 MPV 10.7 (7.5-11.0) fl Segmented Neutrophils 76 H (36.-66.) % Lymphocytes (Manual) 5 L (24-44) % Monocytes (Manual) 13 H (0.0-12.0) % Eosinophils (Manual) 2 (0.00-3.0) % Atypical Lymphocytes 4 % Platelet Estimate NORMAL (NORMAL) RBC Morphology NORMAL D-Dimer (215-500) ng/mL Sodium (137-145) mmol/L Potassium (3.5-5.1) mmol/L Chloride (98-107) mmol/L Carbon Dioxide (22-30) mmol/L Anion Gap (5-15) MEQ/L BUN (9-20) mg/dL Creatinine (0.66-1.25) mg/dL Estimated GFR ML/MIN Glucose (74-106) mg/dL Lactic Acid (0.4-2.0) Calcium (8.4-10.2) mg/dL Ferritin (17.9-464) ng/mL Total Bilirubin (0.2-1.3) mg/dL AST (17-59) U/L ALT (0-50) U/L Alkaline Phosphatase (38-126) U/L Lactate Dehydrogenase (120-246) U/L Troponin I (0.000-0.034) ng/mL Serum Total Protein (6.3-8.2) g/dL Albumin (3.5-5.0) g/dL Monoscreen (Negative) Influenza Type A Ag (NEGATIVE) Influenza Type B Ag (NEGATIVE) Group A Strep Antibody (NEGATIVE) - Progress Progress: improved, re-examined Air Movement: fair Progress Note: 03/04/21 00:57 Chest x-ray shows bibasilar ground glass opacities. CTA chest no pulmonary emboli. Lung shows severe patchy bilateral airspace disease with groundglass opacities that are stable from a prior CAT scan chest Medical decision making: This patient has improved since his admission into the emergency department. However, he is not well enough to be discharged to home at this time. I reviewed the patient history, condition and work-up results with Dr. Aquino. He agrees to accept the patient to place him on the Covid unit. We will place him on Decadron, remdesivir, as well as low-dose Lovenox. We will also add hydrocodone elixir. 03/04/21 01:11 Note: The radiologist from [facility] called back and stated that there is an interval development of trace left pneumothorax. This finding was relayed to Dr. Aquino. We both agree that the patient does not need a chest tube or needle thoracostomy tube at this time. Blood Culture(s) Obtained: Yes Antibiotics given: No Discussed with Dr.: Other (Kenia) Counseled pt/family regarding: lab results, diagnosis, rad results - Departure Departure Disposition: Observation Clinical Impression: COVID-19 virus infection, Hypoxia Condition: Fair Critical Care Time: Yes Critical Care Time(excluding separately billable procedures): Critical 30-74 mins Referrals: HOSPITAL,'S [Primary Care Provider] -
[2021-03-03] MEDS ORDERED: VENTOLIN COMMON CANISTER IH ONE (21:13)
[2021-03-03] MEDS ORDERED: Zofran 4 MG/2 ML VIAL IV STA (21:13)
[2021-03-03] MEDS ORDERED: Sodium Chloride 0.9% 1000 ML 1,000 ML IV SCH (21:15)
[2021-03-03] MEDS ORDERED: HYDROCODONE-ACETAMIN 2.5-108/5 ML SOLUTION PO STA (21:15)
[2021-03-03] MEDS ORDERED: Decadron 4 MG INJ IV ONE (21:15)
[2021-03-03] MEDS ORDERED: ENOXAPARIN SODIUM SQ ONE ×2 (21:16→21:39)
[2021-03-03] MEDS ORDERED: Decadron 4 MG INJ ONE (21:38)
[2021-03-03] MEDS ORDERED: HYDROCODONE-ACETAMIN 2.5-108/5 ML SOLUTION ONE (21:38)
[2021-03-03] MEDS ORDERED: Zofran 4 MG/2 ML VIAL ONE (21:38)
[2021-03-03] MEDS ORDERED: Sodium Chloride 0.9% 1000 ML 1,000 ML ONE (21:39)
[2021-03-03 22:18] LABS: Hematocrit 50.7 % (42-50); Hemoglobin 17.3 gm/dl (12.5-18.0); Mean Cell Volume 81.8 fl (78-100); Mean Corpuscular Hemoglobin 27.9 pg (26-32); Mean Corpuscular Hgb Concent. 34.1 g/dl (32-36); Mean Platelet Volume 10.7 fl (7.5-11.0); Platelet Count 214 K/mm3 (150-450); Red Cell Distribution Width 14.7 % (11.5-14.0); White Blood Count 11.2 K/mm3 (4.0-10.5)
[2021-03-03 22:23] LABS: ALBUMIN 3.6 g/dL (3.5-5.0); ANION GAP 13.2 MEQ/L (5-15); BILIRUBIN,TOTAL 0.7 mg/dL (0.2-1.3); Calcium 8.8 mg/dL (8.4-10.2); Creatinine 1 1.34 mg/dL (0.66-1.25); EST GLOMERULAR FILTRATION RATE 54.9 ML/MIN; Potassium 3.3 mmol/L (3.5-5.1); Total Protein 6.5 g/dL (6.3-8.2)
[2021-03-03 22:29] LABS: INFLUENZA A NEGATIVE (NEGATIVE); INFLUENZA B NEGATIVE (NEGATIVE)
[2021-03-03] MEDS ORDERED: Klor Con 10 MEQ PO ONE ×2 (23:20→23:26)
[2021-03-03 23:38] LABS: ATYPICAL LYMPHS 4 %; Eosinophil 2 % (0.00-3.0); Lymphocytes 5 % (24-44); Monocyte 13 % (0.0-12.0); Neutrophils 76 % (36.-66.); Total Cells Counted 100
[2021-03-03 23:39] LABS: Platelet Estimate NORMAL (NORMAL)
[2021-03-04] MEDS ORDERED: Zofran 4 MG/2 ML VIAL IV PRN (03:34)
[2021-03-04] MEDS ORDERED: REMDESIVIR 200 MG in Sodium Chloride 0.9% 250 ML 250 ML IV ONE (03:34)
[2021-03-04] MEDS ORDERED: HYDROCODONE-ACETAMIN 2.5-108/5 ML SOLUTION PO PRN (03:34)
[2021-03-04] MEDS ORDERED: Sodium Chloride 0.9% 1000 ML 1,000 ML IV SCH (03:34)
--- NOTE | 2021-03-04 08:03 | XRAY ---
Indication: Positive Covid 19. Comparison: February 27, 2021. Portable chest demonstrates grossly stable diffuse bilateral consolidating/nonconsolidating airspace disease again greatest in both lung bases. Heart not enlarged. No new cardiopulmonary abnormalities.
--- NOTE | 2021-03-04 08:03 | XRAY ---
Indication: Elevated d-dimer. Positive Covid 19. Multiple contiguous axial images obtained through the chest using 80 cc Isovue 370 contrast and PE protocol. Comparison: February 22, 2021. There is good opacification of the pulmonary arteries to include the lobar and segmental branches. No pulmonary embolus. Heart not enlarged. Aorta normal in course and caliber with minimal arteriosclerotic calcifications. Stable chunky left infrahilar and tiny subcarinal calcified nodes. No pathologic mediastinal/hilar lymphadenopathy. New small hiatal hernia. Lungs again demonstrates markedly diffuse bilateral consolidating and long consolidating airspace disease again greatest in both lower lobes. No effusion. Bony thorax intact again with mild degenerative changes throughout the spine. Limited upper abdomen again demonstrates splenic calcified granulomas, right renal cyst, and cholecystectomy clips. Impression: 1. Negative pulmonary embolus. 2. Grossly stable diffuse bilateral consolidating/nonconsolidating airspace disease. 3. New small hiatal hernia. 4. Again incidental right renal cyst, chronic bony findings, and old granulomatous disease. Comment: Preliminary interpretation made by [facility]. No critical discrepancy.
[2021-03-04] MEDS ORDERED: HUMALOG SQ PRN (08:14)
[2021-03-04 08:17] VITALS: BP 121/71
[2021-03-04] MEDS ORDERED: Ventolin Hfa MDI IH ONE (09:40)
[2021-03-04] MEDS ORDERED: ENOXAPARIN SODIUM SQ SCH (10:00)
[2021-03-04] MEDS ORDERED: DECADRON 10MG INJ. IV SCH (10:00)
[2021-03-04 10:10] VITALS: O2SAT 89
[2021-03-04 10:14] VITALS: PULSE 100
[2021-03-04] MEDS ORDERED: Protonix 40MG Tablet PO SCH (11:00)
[2021-03-04] MEDS ORDERED: SYNTHROID 25 MCG PO SCH (11:00)
[2021-03-04] MEDS ORDERED: ZOCOR 20MG PO SCH (11:00)
[2021-03-04] MEDS ORDERED: VENTOLIN COMMON CANISTER IH SCH (11:00)
[2021-03-04] MEDS ORDERED: Lantus Insulin SQ SCH (11:00)
[2021-03-04] MEDS ORDERED: PLAVIX 75 MG Tablet PO SCH (11:00)
[2021-03-04] MEDS ORDERED: hydroDIURIL 25 MG PO SCH (11:00)
[2021-03-04] MEDS ORDERED: DELTASONE 20 MG PO SCH (11:00)
[2021-03-04] MEDS ORDERED: NORVASC 5 MG PO SCH (11:00)
[2021-03-04] MEDS ORDERED: Glucophage 500 MG PO SCH (11:00)
[2021-03-04] MEDS ORDERED: ECOTRIN 81 MG PO SCH (11:00)
[2021-03-04] MEDS ORDERED: NON-FORMULARY ITEM (Omeprazole [Omeprazole] 40 MG) PO SCH (22:00)
[2021-03-05] MEDS ORDERED: REMDESIVIR 100 MG in Sodium Chloride 0.9% 100 ML BAG 100 ML IV SCH (01:03)
[2021-03-05] MEDS ORDERED: NON-FORMULARY ITEM (Atorvastatin Calcium [Atorvastatin Calcium] 80 MG) PO SCH (10:00)
--- NOTE | 2021-03-06 11:36 | SSS ---
ADMISSION DIAGNOSES: 1) Prolonged COVID syndrome. 2) Chronic obstructive pulmonary disease. 3) Anxiety. 4) Hypertension. DISCHARGE DIAGNOSES: 1) PROLONGED COVID SYNDROME. 2) CHRONIC OBSTRUCTIVE PULMONARY DISEASE. 3) ANXIETY. 4) HYPERTENSION. HOSPITAL COURSE: The patient was in the hospital 18 days with COVID. He was never placed on a vent but very close. He very slowly gained enough capacity to survive on 5 liters of oxygen at home. However this evening he just could not get better. He was discouraged because he could not walk out on the deck even and he came in coughing and he was deteriorating. His O2 was 79% on room and came up easily with 5 liters up to 94% area. He also had rales. CT scan showed a lot of damage from the COVID, nothing new except for 1% pneumothorax on the right. His white count was normal. BNP was elevated a little bit. CTNI was normal. White count was 11. Hemoglobin was 17.3. MEDICATIONS: Norvasc 5 q.d., aspirin 81 q.d. which he has stopped due to bleeding from the nose. Atorvastatin 80 q.d., Plavix 75 q.d. for history of stents. Hydrochlorothiazide 25 q.d., Lantus 24 units q.a.m., Synthroid 25 mcg daily, Metformin 500 b.i.d., Prilosec 40 b.i.d. and supposedly prednisone 20 q.d. ALLERGIES: NKDA. PHYSICAL EXAMINATION: The patient is alert, orientated and pleasant. We have known each other for a long time. He weighed 72.9 kg. Blood pressure 130/70, respirations 20. O2 saturation 94% on 5 liters. CHEST: Few rhonchi. CVS: Regular rate. 2/6 systolic ejection murmur. ABDOMEN: Soft. No masses or organomegaly. He is quite thin. EXTREMITIES: Thin. No edema. No tenderness. IMPRESSION: He has emphysema, diabetes mellitus, hypothyroidism, coronary artery disease and post-COVID syndrome with persistent lung loss. We had a discussion that improvement would be prison that he just had to wait that he would certainly improve somewhat and hopefully totally. I will drop by and see him in a week or so as he lives [place] the road from me. He is to call me if he gets worse. PROGNOSIS: Fair.
== END 2021-03-04 10:42 | disposition home or self-care (01) ==
LOC: ED 20:51 → MED SURG 03-04 01:30
PROVIDERS: ADMIT Family Medicine; ATTEND Family Medicine
DX: U07.1 COVID-19 (principal); E11.9 Type 2 diabetes mellitus without complications; J44.9 Chronic obstructive pulmonary disease, unspecified; I10 Essential (primary) hypertension; E03.9 Hypothyroidism, unspecified; K21.9 Gastro-esophageal reflux disease without esophagitis; F43.10 Post-traumatic stress disorder, unspecified; Z79.899 Other long term (current) drug therapy; Z79.01 Long term (current) use of anticoagulants; F41.9 Anxiety disorder, unspecified; I25.10 Atherosclerotic heart disease of native coronary artery without angina pectoris
CPT/HCPCS: 36000; 36415; 71045; 71260; 80053; 82728; 82947; 83605; 83615; 84484; 85025; 85379; 86308; 87040; 87400; 87651; 93005; 93268; 94640; 94760; 94762; 96374; 99285; G0378; 99291; J1100; J1650; J1817; J2405; A9270-GY

== ENCOUNTER 2021-03-20 20:31 | Emergency (ER) | payer OTHER ==
[2021-03-20] MEDS ORDERED: NEOSYNEPHRINE 0.5% NASAL SPRAY/DROPS ONE (20:36)
[2021-03-20 21:26] LABS: Absolute Neutrophil Ct (ANC) 3.99 (1.4-6.9); BASOPHIL % 0.9 % (0.0-0.4); Basophil (Absolute #) 0.06 (0-0.4); Eosinophil % 1.8 % (0.00-5.0); Eosinophil (Absolute #) 0.12 (0-0.5); Hematocrit 45.1 % (42-50); Hemoglobin 15.4 gm/dl (12.5-18.0); Lymphocyte (Absolute #) 1.76 (1.0-4.6); Lymphocytes % 26.5 % (24.0-44.0); Mean Cell Volume 82.8 fl (78-100); Mean Corpuscular Hemoglobin 28.3 pg (26-32); Mean Corpuscular Hgb Concent. 34.1 g/dl (32-36); Mean Platelet Volume 9.8 fl (7.5-11.0); Monocytes % 10.6 % (0.0-12.0); Neutrophil % 60.2 % (36.0-66.0); Platelet Count 359 K/mm3 (150-450); Red Blood Count 5.45 M/mm3 (4.1-5.6); Red Cell Distribution Width 14.5 % (11.5-14.0); White Blood Count 6.6 K/mm3 (4.0-10.5)
--- NOTE | 2021-03-20 21:34 | ERPHSYRPT ---
- History of Present Illness Source: patient, EMS Exam Limitations: no limitations Patient Subjective Stated Complaint: pt states he started having nose bleed this evening approx 1 hour prior to coming in to the er. states he was unable to get it to stop Triage Nursing Assessment: pt alert and oriented, answers questions approp. pt transfers from ems cot to stretcher per self. pt short of breath with exertion, states is his normal at home. o2 applied at 4l per oxymask. skin warm and dry. no active bleeding from nares at this time. Physician History: 75 yo wm who is on 5L O2 NC at home and was on Plavix until 2 wks ago presents w L epistaxis before arrival. Pt has a h/o L nares epistaxis. He denies melena/hematochezia.Pt arrived w gauze in B nostrils ,and when removed in ER, no active bleeding. Timing/Duration: abrupt onset Severity: mild ENT Location: nose Prearrival Treatment: nasal packing Modifying Factors: Improves With: nothing Associated Symptoms: epistaxis, No ear pain (R), No ear pain (L), No cough, No fever, No chills, No change in hearing, No dizziness, No drooling, No ear drainage, No facial pain/swelling, No headache, No hearing loss, No jaw pain, No malaise, No motion sickness, No nasal congestion/drainage, No nasal foreign body, No neck pain, No poor fluid intake, No poor solids intake, No ringing of ears, No swollen glands, No sinus infection, No sore throat Allergies/Adverse Reactions: No Known Drug Allergies Allergy (Verified 03/20/21 20:55) Home Medications: Amlodipine Besylate 5 mg [Norvasc 5 mg] 5 mg PO DAILY 02/13/21 [History] Aspirin EC 81 mg [Ecotrin 81 mg] 81 mg PO DAILY 02/13/21 [History] Atorvastatin Calcium 80 mg PO DAILY 02/13/21 [History] Clopidogrel Bisulfate 75 mg [PLAVIX 75 MG Tablet] 75 mg PO DAILY 02/13/21 [History] Hydrochlorothiazide 25 mg [hydroDIURIL 25 MG] 25 mg PO DAILY 02/13/21 [History] Insulin Glargine [Lantus Insulin] 24 unit SQ DAILY 02/13/21 [History] Levothyroxine Sodium 25 Mcg [Synthroid 25 Mcg] 25 mcg PO DAILY 02/13/21 [ History] Metformin HCl 500 mg [Glucophage 500 MG] 500 mg PO BIDWM 02/13/21 [History] Omeprazole 40 mg PO BID 02/13/21 [History] Hx Tetanus, Diphtheria Vaccination/Date Given: No Hx Influenza Vaccination/Date Given: No Hx Pneumococcal Vaccination/Date Given: Yes Travel Risk - International Travel Have you traveled outside of the country in past 3 weeks: No - Coronavirus Screening Are you exhibiting any of the following symptoms?: No Close contact with a COVID-19 positive Pt in past 14-21 Days: No - Vaccine Status Have you recieved a Covid-19 vaccination: No - Review of Systems Constitutional: No Symptoms Eyes: No Symptoms Ears, Nose, & Throat: No Symptoms, Epistaxis Respiratory: No Symptoms Cardiac: No Symptoms Abdominal/Gastrointestinal: No Symptoms Genitourinary Symptoms: No Symptoms Musculoskeletal: No Symptoms Skin: No Symptoms Neurological: No Symptoms Psychological: No Symptoms Endocrine: No Symptoms Hematologic/Lymphatic: No Symptoms, Easy Bleeding Immunological/Allergic: No Symptoms - Past Medical History Pertinent Past Medical History: Yes Neurological History: No Pertinent History Cardiac History: Hypertension Respiratory History: No Pertinent History Endocrine Medical History: Diabetes Type II Musculoskeletal History: No Pertinent History GI Medical History: Gallbladder Disease History: No Pertinent History Psycho-Social History: No Pertinent History Male Reproductive Disorders: No Pertinent History Other Medical History: PTSD- [place] - Past Surgical History Past Surgical History: Yes Neuro Surgical History: No Pertinent History Cardiac: No Pertinent History Respiratory: No Pertinent History Gastrointestinal: Cholecystectomy Genitourinary: No Pertinent History Musculoskeletal: No Pertinent History Male Surgical History: No Pertinent History Other Surgical History: hernia. right elbow. lenin. bilat knee scope. joint pain R knee - Social History Smoking Status: Former smoker Exposure to second hand smoke: Yes Drug Use: none Patient Lives Alone: No Significant Family History: no pertinent family hx - Nursing Vital Signs Nursing Vital Signs: Initial Vital Signs Temperature 97.8 F 03/20/21 20:34 Pulse Rate 103 H 03/20/21 20:34 Respiratory Rate 28 H 03/20/21 20:34 Blood Pressure 119/77 03/20/21 20:34 O2 Sat by Pulse Oximetry 93 L 03/20/21 20:34 Pain Scale Pain Intensity 0 Mildly tachy - Physical Exam General Appearance: no apparent distress, anxiety Eye Exam: bilateral eye: normal inspection, PERRL, EOMI SpO2: 93 Ordered Tests: Active Orders 24 hr Category Date Time Status CBC W DIFF Stat Lab 03/20/21 20:42 Completed PROTIME WITH INR Stat Lab 03/20/21 20:42 Completed PTT Stat Lab 03/20/21 20:42 Completed Medication Summary Discontinued Medications Generic Name Dose Route Start Last Admin Trade Name Isaiah PRN Reason Stop Dose Admin Phenylephrine HCl Confirm 03/20/21 20:36 Neosynephrine 0.5% Nasal Dyer/Drops Administered 03/20/21 20:37 Dose 15 ml .ROUTE .JethroData ONE Lab/Rad Data: Laboratory Result Diagrams 03/20/21 20:42 Laboratory Results 03/20/21 03/20/21 Range/Units 20:42 20:42 WBC 6.6 (4.0-10.5) K/mm3 RBC 5.45 (4.1-5.6) M/mm3 Hgb 15.4 (12.5-18.0) gm/dl Hct 45.1 (42-50) % MCV 82.8 (78-100) fl MCH 28.3 (26-32) pg MCHC 34.1 (32-36) g/dl RDW 14.5 H (11.5-14.0) % Plt Count 359 (150-450) K/mm3 MPV 9.8 (7.5-11.0) fl Gran % 60.2 (36.0-66.0) % Eos # (Auto) 0.12 (0-0.5) Absolute Lymphs (auto) 1.76 (1.0-4.6) Absolute Monos (auto) 0.70 (0.0-1.3) Lymphocytes % 26.5 (24.0-44.0) % Monocytes % 10.6 (0.0-12.0) % Eosinophils % 1.8 (0.00-5.0) % Basophils % 0.9 (0.0-0.4) % Absolute Granulocytes 3.99 (1.4-6.9) Basophils # 0.06 (0-0.4) PT 11.2 (9.4-12.5) SECONDS INR 0.95 (0.8-3.0) APTT 30.4 (25.1-36.5) SECONDS - Progress Progress Note: 03/20/21 22:01 No active bleeding in ER Counseled pt/family regarding: lab results, diagnosis, need for follow-up - Departure Departure Disposition: Home Clinical Impression: Epistaxis Condition: Stable Critical Care Time: No Referrals: HOSPITAL,'S [Primary Care Provider] - Instructions: Nosebleeds (DC) Additional Instructions: Do not blow nose for 12 hours Follow up with your family MD or an ENT to have bleeding spot cauterized Return to ER for bleeding that does not stop after holding pressure for 30minutes
[2021-03-20 21:51] LABS: INR 0.95 (0.8-3.0); PROTIME 11.2 SECONDS (9.4-12.5)
[2021-03-20 21:53] LABS: PTT 30.4 SECONDS (25.1-36.5)
[2021-03-20 22:17] VITALS: BP 136/83
[2021-03-20 22:29] VITALS: PULSE 92
[2021-03-20 22:41] VITALS: O2SAT 93
== END 2021-03-20 22:23 | disposition home or self-care (01) ==
LOC: ED 20:31
DX: R04.0 Epistaxis (principal); E11.9 Type 2 diabetes mellitus without complications; I10 Essential (primary) hypertension
CPT/HCPCS: 36415; 85025; 85610; 85730; 99284; A9270-GY

== ENCOUNTER 2021-06-20 07:00 | Emergency (ER) | payer OTHER ==
--- NOTE | 2021-06-20 07:10 | ERPHSYRPT ---
- History of Present Illness Time Seen by Provider: 06/20/21 07:08 Historian: patient Exam Limitations: no limitations Timing/Duration: today, hour(s) (2 hours ago), gradual onset, worse Activities at Onset: sleep Quality: pressure Location: substernal Chest Pain Radiation: jaw Severity of Pain-Max: moderate Severity of Pain-Current: moderate Modifying Factors: Improves With: nothing Associated Symptoms: denies symptoms Prior Chest Pain/Cardiac Workup: no prior chest pain, no prior cardiac workup Nitro Today/Relief: no nitro taken today Aspirin Treatment Today: 81 mg x 1 Allergies/Adverse Reactions: No Known Drug Allergies Allergy (Verified 06/20/21 07:12) Home Medications: Amlodipine Besylate 5 mg [Norvasc 5 mg] 5 mg PO DAILY 02/13/21 [History] Aspirin EC 81 mg [Ecotrin 81 mg] 81 mg PO DAILY 02/13/21 [History] Atorvastatin Calcium 80 mg PO DAILY 02/13/21 [History] Hydrochlorothiazide 25 mg [hydroDIURIL 25 MG] 25 mg PO DAILY 02/13/21 [History] Insulin Glargine [Lantus Insulin] 24 unit SQ DAILY 02/13/21 [History] Metformin HCl 500 mg [Glucophage 500 MG] 500 mg PO BIDWM 02/13/21 [History] Omeprazole 40 mg PO BID 02/13/21 [History] Hx Tetanus, Diphtheria Vaccination/Date Given: No Hx Influenza Vaccination/Date Given: No Hx Pneumococcal Vaccination/Date Given: Yes - Review of Systems Constitutional: No Symptoms Eyes: No Symptoms Ears, Nose, & Throat: No Symptoms Respiratory: No Symptoms Cardiac: Chest Pain Abdominal/Gastrointestinal: No Symptoms Genitourinary Symptoms: No Symptoms Musculoskeletal: No Symptoms Skin: No Symptoms Neurological: No Symptoms Psychological: No Symptoms Endocrine: No Symptoms Hematologic/Lymphatic: No Symptoms Immunological/Allergic: No Symptoms All Other Systems: Reviewed and Negative - Past Medical History Pertinent Past Medical History: Yes Neurological History: No Pertinent History ENT History: No Pertinent History Cardiac History: Hypertension Respiratory History: No Pertinent History Endocrine Medical History: Diabetes Type II Musculoskeletal History: No Pertinent History GI Medical History: Gallbladder Disease History: No Pertinent History Psycho-Social History: No Pertinent History Male Reproductive Disorders: No Pertinent History Other Medical History: PTSD- [place] - Past Surgical History Past Surgical History: Yes Neuro Surgical History: No Pertinent History Cardiac: No Pertinent History Respiratory: No Pertinent History Gastrointestinal: Cholecystectomy Genitourinary: No Pertinent History Musculoskeletal: No Pertinent History Male Surgical History: No Pertinent History Other Surgical History: hernia. right elbow. lenin. bilat knee scope. joint pain R knee - Social History Smoking Status: Former smoker Exposure to second hand smoke: Yes Drug Use: none Patient Lives Alone: No Significant Family History: no pertinent family hx - Nursing Vital Signs Nursing Vital Signs: Initial Vital Signs Temperature 96.2 F 06/20/21 07:03 Pulse Rate 68 06/20/21 07:03 Respiratory Rate 22 06/20/21 07:03 Blood Pressure 169/100 06/20/21 07:03 O2 Sat by Pulse Oximetry 96 06/20/21 07:03 Pain Scale Pain Intensity 5 - Physical Exam General Appearance: moderate distress, alert Eye Exam: PERRL/EOMI Ears, Nose, Throat Exam: normal ENT inspection Neck Exam: normal inspection, non-tender Respiratory Exam: normal breath sounds, lungs clear, airway intact Gastrointestinal/Abdomen Exam: soft, normal bowel sounds Rectal Exam: deferred Back Exam: normal inspection, normal range of motion Extremity Exam: normal inspection, normal range of motion Neurologic Exam: alert, oriented x 3, cooperative, normal mood/affect Skin Exam: normal color SpO2 Interpretation: normal SpO2: 96 O2 Delivery: Room Air - Course Nursing assessment & vital signs reviewed: Yes EKG Interpreted by Me: RATE (69), Sinus Rhythm, NORMAL INTERVALS, Ischemic ST-T changes, Other Rhythm Strip: Rate (repeat EKG at 0843 shows sinus carina at 54 with no ischemia), Normal Sinus Rhythm - Radiology Exams Chest X-ray Interpretation: Reviewed by me, Teleradiologist Report, Other (mild airspace disease) Ordered Tests: Active Orders 24 hr Category Date Time Status Fan Blade Aligner STAT Care 06/20/21 07:29 Active EKG-ER Only STAT Care 06/20/21 07:26 Active IV Insertion STAT Care 06/20/21 07:26 Active Oxygen-ED Only Nasal Cannula 2 lpm Care 06/20/21 07:26 Active CHEST 1 VIEW (PORTABLE) Stat Exams 06/20/21 07:29 Completed CBC W DIFF Stat Lab 06/20/21 07:50 Completed CK-Creatinine Phosphokinase Stat Lab 06/20/21 07:50 Completed CMP Stat Lab 06/20/21 07:50 Completed D-DIMER QUANTITATIVE Stat Lab 06/20/21 07:50 Completed NT PRO BNP Stat Lab 06/20/21 07:50 Completed TROPONIN Q3H Lab 06/20/21 07:50 Completed TROPONIN Q3H Lab 06/20/21 10:30 Ordered TROPONIN Q3H Lab 06/20/21 13:30 Ordered TROPONIN Q3H Lab 06/20/21 16:30 Ordered TROPONIN Q3H Lab 06/20/21 19:30 Ordered Medication Summary Generic Name Dose Route Start Last Admin Trade Name Freq PRN Reason Stop Dose Admin Nitroglycerin 0.4 mg 06/20/21 07:28 06/20/21 07:46 Nitroglycerin 0.4 Mg Tablet Bottle SL 07/20/21 07:27 0.4 mg Q5MIN PRN MR X 3 PRN Administration CHEST PAIN Discontinued Medications Generic Name Dose Route Start Last Admin Trade Name Freq PRN Reason Stop Dose Admin Aspirin 243 mg 06/20/21 07:17 06/20/21 07:19 Aspirin 81 Mg Tab.Chew PO 06/20/21 07:18 243 mg STAT ONE Administration Atorvastatin Calcium Confirm 06/20/21 08:54 Atorvastatin Calcium 40 Mg Tablet Administered 06/20/21 08:55 Dose 80 mg .ROUTE .STK-MED ONE Heparin Sodium (Beef Lung) Confirm 06/20/21 08:54 Heparin 5000 Unit/0.5 Ml Syringe Administered 06/20/21 08:55 Dose 5,000 unit .ROUTE .STK-MED ONE Heparin Sodium/Dextrose Confirm 06/20/21 08:54 Heparin 25,000 Units/D5w 250ml Premix Administered 06/20/21 08:55 Dose 25,000 units in 250 mls @ ud IV .STK-MED ONE Morphine Sulfate 4 mg 06/20/21 07:53 06/20/21 08:09 Morphine Sulfate 4 Mg/Ml Injection IV 06/20/21 07:54 4 mg STAT ONE Administration Morphine Sulfate Confirm 06/20/21 08:05 Morphine Sulfate 4 Mg/Ml Injection Administered 06/20/21 08:06 Dose 4 mg .ROUTE .STK-MED ONE Nitroglycerin 0.4 mg 06/20/21 07:17 06/20/21 07:19 Nitroglycerin 0.4 Mg (Ed) 0.4 Mg Tab.Subl SL 06/20/21 07:18 0.4 mg STAT ONE Administration Nitroglycerin 1 gm 06/20/21 07:55 06/20/21 08:09 Nitroglycerin 1 Gm Packet TOP 06/20/21 07:56 1 gm STAT ONE Administration Nitroglycerin Confirm 06/20/21 08:05 Nitroglycerin 1 Gm Packet Administered 06/20/21 08:06 Dose 1 gm .ROUTE .STK-MED ONE Ondansetron HCl 4 mg 06/20/21 07:53 06/20/21 08:09 Ondansetron Hcl 4 Mg/2 Ml Vial IV 06/20/21 07:54 4 mg STAT ONE Administration Ondansetron HCl Confirm 06/20/21 08:05 Ondansetron Hcl 4 Mg/2 Ml Vial Administered 06/20/21 08:06 Dose 4 mg .ROUTE .STK-MED ONE Lab/Rad Data: Laboratory Result Diagrams 06/20/21 07:50 06/20/21 07:50 Laboratory Results 06/20/21 06/20/21 06/20/21 Range/Units 07:50 07:50 07:50 WBC (4.0-10.5) K/mm3 RBC (4.1-5.6) M/mm3 Hgb (12.5-18.0) gm/dl Hct (42-50) % MCV (78-100) fl MCH (26-32) pg MCHC (32-36) g/dl RDW (11.5-14.0) % Plt Count (150-450) K/mm3 MPV (7.5-11.0) fl Gran % (36.0-66.0) % Eos # (Auto) (0-0.5) Absolute Lymphs (auto) (1.0-4.6) Absolute Monos (auto) (0.0-1.3) Lymphocytes % (24.0-44.0) % Monocytes % (0.0-12.0) % Eosinophils % (0.00-5.0) % Basophils % (0.0-0.4) % Absolute Granulocytes (1.4-6.9) Basophils # (0-0.4) D-Dimer 544 H* (215-500) ng/mL Sodium 137 (137-145) mmol/L Potassium 3.3 L (3.5-5.1) mmol/L Chloride 106 (98-107) mmol/L Carbon Dioxide 21 L (22-30) mmol/L Anion Gap 13.5 (5-15) MEQ/L BUN 18 (9-20) mg/dL Creatinine 1.19 (0.66-1.25) mg/dL Estimated GFR > 60.0 ML/MIN Glucose 280 H (74-106) mg/dL Calcium 9.1 (8.4-10.2) mg/dL Total Bilirubin 0.80 (0.2-1.3) mg/dL AST 22 (17-59) U/L ALT 16 (0-50) U/L Alkaline Phosphatase 89 (38-126) U/L Creatine Kinase 59 (55-170) U/L Troponin I 0.159 H* (0.000-0.034) ng/mL NT-Pro-B Natriuret Pep 219 (0-1800) pg/mL Serum Total Protein 6.9 (6.3-8.2) g/dL Albumin 4.0 (3.5-5.0) g/dL 06/20/21 Range/Units 07:50 WBC 7.1 (4.0-10.5) K/mm3 RBC 5.85 H (4.1-5.6) M/mm3 Hgb 16.5 (12.5-18.0) gm/dl Hct 47.6 (42-50) % MCV 81.4 (78-100) fl MCH 28.2 (26-32) pg MCHC 34.7 (32-36) g/dl RDW 13.2 (11.5-14.0) % Plt Count 231 (150-450) K/mm3 MPV 10.4 (7.5-11.0) fl Gran % 52.6 (36.0-66.0) % Eos # (Auto) 0.30 (0-0.5) Absolute Lymphs (auto) 2.40 (1.0-4.6) Absolute Monos (auto) 0.59 (0.0-1.3) Lymphocytes % 34.0 (24.0-44.0) % Monocytes % 8.4 (0.0-12.0) % Eosinophils % 4.2 (0.00-5.0) % Basophils % 0.8 (0.0-0.4) % Absolute Granulocytes 3.71 (1.4-6.9) Basophils # 0.06 (0-0.4) D-Dimer (215-500) ng/mL Sodium (137-145) mmol/L Potassium (3.5-5.1) mmol/L Chloride (98-107) mmol/L Carbon Dioxide (22-30) mmol/L Anion Gap (5-15) MEQ/L BUN (9-20) mg/dL Creatinine (0.66-1.25) mg/dL Estimated GFR ML/MIN Glucose (74-106) mg/dL Calcium (8.4-10.2) mg/dL Total Bilirubin (0.2-1.3) mg/dL AST (17-59) U/L ALT (0-50) U/L Alkaline Phosphatase (38-126) U/L Creatine Kinase (55-170) U/L Troponin I (0.000-0.034) ng/mL NT-Pro-B Natriuret Pep (0-1800) pg/mL Serum Total Protein (6.3-8.2) g/dL Albumin (3.5-5.0) g/dL - Progress Progress: improved Air Movement: good Progress Note: 06/20/21 09:27 Chest pain sig. relieved with ASA followed by NTG Sl then paste, also MS 4 mg IV. EKG normalized. Disc. with Dr. Mejia Hardin at [facility], heparinize and he will take him to the offset label rewinder. TRansfer in stable condition. Blood Culture(s) Obtained: No Antibiotics given: No Counseled pt/family regarding: lab results, diagnosis, rad results - Departure Departure Disposition: Transfer Clinical Impression: Non-STEMI (non-ST elevated myocardial infarction) Condition: Fair Critical Care Time: Yes Critical Care Time(excluding separately billable procedures): Critical 30-74 mins Referrals: HOSP[facility],'[facility] [Primary Care Provider] - Follow up/PCP as directed
[2021-06-20] MEDS ORDERED: Nitrostat 0.4 MG (ED) SL ONE (07:17)
[2021-06-20] MEDS ORDERED: BABY ASPIRIN 81 MG CHEW PO ONE (07:17)
[2021-06-20] MEDS: Nitrostat 0.4 MG Tablet SL PRN ×2 (07:32→07:46)
[2021-06-20] MEDS ORDERED: MORPHINE SULFATE 4 MG INJ IV ONE (07:53)
[2021-06-20] MEDS ORDERED: Zofran 4 MG/2 ML VIAL IV ONE (07:53)
[2021-06-20] MEDS ORDERED: NITRO-BID 2% UD PACKETS TOP ONE (07:55)
[2021-06-20 08:02] LABS: Absolute Neutrophil Ct (ANC) 3.71 (1.4-6.9); Basophil (Absolute #) 0.06 (0-0.4); Eosinophil % 4.2 % (0.00-5.0); Hematocrit 47.6 % (42-50); Hemoglobin 16.5 gm/dl (12.5-18.0); Mean Cell Volume 81.4 fl (78-100); Mean Corpuscular Hemoglobin 28.2 pg (26-32); Mean Corpuscular Hgb Concent. 34.7 g/dl (32-36); Mean Platelet Volume 10.4 fl (7.5-11.0); Monocyte (Absolute #) 0.59 (0.0-1.3); Monocytes % 8.4 % (0.0-12.0); Neutrophil % 52.6 % (36.0-66.0); Platelet Count 231 K/mm3 (150-450); Red Blood Count 5.85 M/mm3 (4.1-5.6); Red Cell Distribution Width 13.2 % (11.5-14.0); White Blood Count 7.1 K/mm3 (4.0-10.5)
[2021-06-20] MEDS ORDERED: Zofran 4 MG/2 ML VIAL ONE (08:05)
[2021-06-20] MEDS ORDERED: MORPHINE SULFATE 4 MG INJ ONE (08:05)
[2021-06-20] MEDS ORDERED: NITRO-BID 2% UD PACKETS ONE (08:05)
[2021-06-20 08:17] VITALS: PULSE 62
[2021-06-20 08:20] LABS: ALKALINE PHOSPHATASE 89 U/L (38-126); ANION GAP 13.5 MEQ/L (5-15); BLOOD UREA NITROGEN 18 mg/dL (9-20); CHLORIDE 106 mmol/L (98-107); CK-Creatinine Phosphokinase 59 U/L (55-170); Calcium 9.1 mg/dL (8.4-10.2); Carbon Dioxide 21 mmol/L (22-30); Creatinine 1 1.19 mg/dL (0.66-1.25); EST GLOMERULAR FILTRATION RATE > 60.0 ML/MIN; Glucose 280 mg/dL (74-106); NT PRO BNP 219 pg/mL (0-1800); Potassium 3.3 mmol/L (3.5-5.1); SGOT/AST 22 U/L (17-59); SGPT/ALT 16 U/L (0-50); SODIUM 137 mmol/L (137-145); Total Protein 6.9 g/dL (6.3-8.2)
--- NOTE | 2021-06-20 08:36 | XRAY ---
Indication: Chest pain and short of breath. Comparison: March 03, 2021. Portable chest again demonstrates mild diffuse bilateral airspace disease, less than before. No consolidation/large effusion. Heart not enlarged again with left hilar calcified nodes. Bony thorax intact again with mild osteopenia and degenerative changes.
[2021-06-20] MEDS ORDERED: Heparin 25,000 units/D5W 250ML PREMIX 25,000 UNITS/250 ML BAG IV ONE (08:54)
[2021-06-20] MEDS ORDERED: LIPITOR 40MG ONE (08:54)
[2021-06-20] MEDS ORDERED: Heparin 5000 UNITS/0.5 ML (HIGH RISK MED) ONE (08:54)
[2021-06-20 09:17] VITALS: BP 129/83
[2021-06-20 09:27] VITALS: O2SAT 96
== END 2021-06-20 09:10 | disposition short-term general hospital (02) ==
LOC: ED 07:00
DX: I21.4 Non-ST elevation (NSTEMI) myocardial infarction (principal); I10 Essential (primary) hypertension; I20.0 Unstable angina; E11.9 Type 2 diabetes mellitus without complications; Z79.4 Long term (current) use of insulin; Z79.84 Long term (current) use of oral hypoglycemic drugs; Z79.899 Other long term (current) drug therapy
CPT/HCPCS: 36000; 36415; 71045; 80053; 82550; 83880; 84484; 85025; 85379; 93005; 93041; 96374; 96375; 99285; J1644; J2270; J2405; A9270-GY

== ENCOUNTER 2022-06-22 11:19 | Emergency (ER) | payer OTHER ==
[2022-06-22 11:32] VITALS: O2SAT 98
--- NOTE | 2022-06-22 11:35 | ERPHSYRPT ---
- History of Present Illness Time Seen by Provider: 06/22/22 11:34 Source: patient Patient Subjective Stated Complaint: Pt states "I have this horrible cough" Triage Nursing Assessment: PT presented alert and oriented X3, skin pwd. Pt ambulates with an upright steady gait, able to speak in clear full sentences. Pt has intermittant cough. Physician History: This is a 77-year-old white male patient who presents with 1 week history of cough, congestion and sore throat. Patient states his spouse has similar symptoms. Patient denies chest pain. He denies shortness of breath. He has no abdominal pain. He has no nausea vomiting or diarrhea symptoms. He has a history of hypertension, insulin-dependent diabetes, hyperlipidemia, gastroesophageal reflux disease and PTSD. He has no known exposure to individuals with diagnosis of flus. Timing/Duration: week(s) (1) Cough Quality/Degree: mild (To moderate), dry cough Possible Cause: no prior episodes Modifying Factors: Improves With: coughing Associated Symptoms: cough, muscle aches, sore throat, No fever, No chills, No chest pain/soreness, No headache, No shortness of breath, No wheezing Allergies/Adverse Reactions: No Known Drug Allergies Allergy (Verified 06/20/21 07:12) Home Medications: Amlodipine Besylate 5 mg [Norvasc 5 mg] 5 mg PO DAILY 02/13/21 [History] Aspirin EC 81 mg [Ecotrin 81 mg] 81 mg PO DAILY 02/13/21 [History] Atorvastatin Calcium 80 mg PO DAILY 02/13/21 [History] Hydrochlorothiazide 25 mg [hydroDIURIL 25 MG] 25 mg PO DAILY 02/13/21 [History] Insulin Glargine [Lantus Insulin] 24 unit SQ DAILY 02/13/21 [History] Metformin HCl 500 mg [Glucophage 500 MG] 500 mg PO BIDWM 02/13/21 [History] Omeprazole 40 mg PO BID 02/13/21 [History] Hx Tetanus, Diphtheria Vaccination/Date Given: No Hx Influenza Vaccination/Date Given: No Hx Pneumococcal Vaccination/Date Given: Yes Immunizations Up to Date: Yes Travel Risk - International Travel Have you traveled outside of the country in past 3 weeks: No - Coronavirus Screening Are you exhibiting any of the following symptoms?: Yes Symptoms: Cough: New Onset Close contact with a COVID-19 positive Pt in past 14-21 Days: No - Vaccine Status Have you recieved a Covid-19 vaccination: No - Review of Systems Constitutional: No Symptoms Eyes: No Symptoms Ears, Nose, & Throat: Nose Congestion, Throat Pain Respiratory: Cough, No Dyspnea, No Wheezing Cardiac: No Chest Pain Abdominal/Gastrointestinal: No Symptoms Genitourinary Symptoms: No Symptoms Musculoskeletal: Arthralgias, Myalgias Skin: No Symptoms Neurological: No Symptoms Psychological: No Symptoms Endocrine: No Symptoms Hematologic/Lymphatic: No Symptoms Immunological/Allergic: No Symptoms All Other Systems: Reviewed and Negative - Past Medical History Pertinent Past Medical History: Yes Neurological History: No Pertinent History ENT History: No Pertinent History Cardiac History: Hypertension Respiratory History: No Pertinent History Endocrine Medical History: Diabetes Type II Musculoskeletal History: No Pertinent History GI Medical History: Gallbladder Disease History: No Pertinent History Psycho-Social History: No Pertinent History Male Reproductive Disorders: No Pertinent History Other Medical History: PTSD- [place] - Past Surgical History Past Surgical History: Yes Neuro Surgical History: No Pertinent History Cardiac: No Pertinent History Respiratory: No Pertinent History Gastrointestinal: Cholecystectomy Genitourinary: No Pertinent History Musculoskeletal: No Pertinent History Male Surgical History: No Pertinent History Other Surgical History: hernia. right elbow. lenin. bilat knee scope. joint pain R knee - Social History Smoking Status: Former smoker Exposure to second hand smoke: Yes Drug Use: none Patient Lives Alone: No Significant Family History: no pertinent family hx - Nursing Vital Signs Nursing Vital Signs: Initial Vital Signs Temperature 97.9 F 06/22/22 11:28 Pulse Rate 87 06/22/22 11:28 Respiratory Rate 24 06/22/22 11:28 Blood Pressure 175/94 06/22/22 11:28 O2 Sat by Pulse Oximetry 94 L 06/22/22 11:28 Pain Scale Pain Intensity 0 - Physical Exam General Appearance: no apparent distress, alert Eye Exam: PERRL/EOMI, eyes nml inspection Ears, Nose, Throat Exam: normal ENT inspection, moist mucous membranes Neck Exam: normal inspection, non-tender, supple, full range of motion Respiratory Exam: normal breath sounds, lungs clear, airway intact, No chest tenderness, No respiratory distress, No wheezing Cardiovascular Exam: regular rate/rhythm, normal heart sounds, normal peripheral pulses Gastrointestinal/Abdomen Exam: soft, normal bowel sounds, No tenderness Rectal Exam: not done Back Exam: normal inspection, normal range of motion, No CVA tenderness, No vertebral tenderness Extremity Exam: normal inspection, normal range of motion, pelvis stable Neurologic Exam: alert, oriented x 3, cooperative, meter maintenance person II-XII nml as tested, normal mood/affect, nml cerebellar function, nml station & gait, sensation nml Skin Exam: normal color, warm Lymphatic Exam: No adenopathy SpO2 Interpretation: normal SpO2: 98 O2 Delivery: Room Air - Course Nursing assessment & vital signs reviewed: Yes Ordered Tests: Active Orders 24 hr Category Date Time Status POCT Glucose Check STAT Care 06/22/22 11:46 Active CHEST 1 VIEW (PORTABLE) Stat Exams 06/22/22 11:35 Completed POCT GLUCOSE Stat Lab 06/22/22 11:35 Completed Lab/Rad Data: Laboratory Results 06/22/22 06/22/22 Range/Units 11:47 11:35 POC Glucometer 114 H (74 to 106) mg/dL Influenza Type A Ag NEGATIVE (NEGATIVE) Influenza Type B Ag NEGATIVE (NEGATIVE) RSV (PCR) POSITIVE (Negative) SARS-CoV-2 (PCR) NEGATIVE (NEGATIVE) - Progress Progress: unchanged Air Movement: good Progress Note: 06/22/22 12:27 Chest x-ray shows no acute cardiopulmonary abnormalities. - Departure Departure Disposition: Home Clinical Impression: RSV bronchitis Condition: Stable Critical Care Time: No Referrals: HOSP[facility],'[facility] [Primary Care Provider] - Follow up/PCP as directed Additional Instructions: Drink plenty of fluids. Take your medications as prescribed. Monitor your blood sugar closely while taking the steroids. Follow-up with your primary care provider for persistent symptoms. Prescriptions: Hydrocodone/Acetaminophen [Hydrocodone-Acetamn 7.5-325/15] 10 ml PO Q8H PRN PRN #120 ml MDD 30 ml PRN Reason: Cough Prednisone 10 mg [Deltasone 10 mg] 10 mg PO TID #12 tablet
--- NOTE | 2022-06-22 12:04 | XRAY ---
Indication: Cough. Comparison: June 20, 2021 Portable chest better inflated with again minimal bibasilar fibrosis/scarring. No focal infiltrate, consolidation, or large effusion. Heart not enlarged with interval CABG. Bony thorax intact again with mild osteopenia and degenerative changes. Impression: Nonacute chest with chronic features.
[2022-06-22 12:29] LABS: INFLUENZA A NEGATIVE (NEGATIVE); INFLUENZA B NEGATIVE (NEGATIVE); SARS-CoV-2 Xpert Express NEGATIVE (NEGATIVE)
[2022-06-22 12:30] VITALS: BP 168/92; PULSE 79
[2022-06-22 12:37] LABS: RESPIRATORY SYNCTIAL VIRUS POSITIVE (Negative)
== END 2022-06-22 12:57 | disposition home or self-care (01) ==
LOC: ED 11:19
DX: J20.5 Acute bronchitis due to respiratory syncytial virus (principal); R05.1 Acute cough; J02.9 Acute pharyngitis, unspecified; I10 Essential (primary) hypertension; E11.9 Type 2 diabetes mellitus without complications; E78.5 Hyperlipidemia, unspecified; Z79.891 Long term (current) use of opiate analgesic; Z79.52 Long term (current) use of systemic steroids; Z79.4 Long term (current) use of insulin; Z79.84 Long term (current) use of oral hypoglycemic drugs; Z79.899 Other long term (current) drug therapy; Z28.310 Unvaccinated for COVID-19
CPT/HCPCS: 0241U; 71045; 82947; 99283

== ENCOUNTER 2025-04-22 07:51 | Day surgery (SDC) | payer OTHER ==
--- NOTE | 2025-04-19 19:09 | HP ---
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 PAST MEDICAL HISTORY: Diabetes, heart disease, coronary artery disease, kidney disease, thyroid, hyperlipidemia, hypertension. HOME MEDICATIONS: Aspirin, methocarbamol, tamsulosin, rosuvastatin, omeprazole, metoprolol, isosorbide mononitrate, gabapentin, Plavix, amlodipine, aspirin. ALLERGIES: Lisinopril. PAST SURGICAL HISTORY: CABG, hernia repair. SOCIAL HISTORY: Negative. FAMILY HISTORY: None reported. REVIEW OF SYSTEMS: CONSTITUTIONAL: Denies fever or chills. CHEST: Denies shortness of breath. CARDIOVASCULAR: Denies chest pain. ABDOMEN: Denies abdominal pain. PHYSICAL EXAMINATION: GENERAL: In no acute distress. CARDIOVASCULAR: Regular rate and rhythm. RESPIRATORY: Nonlabored. No shortness of breath. ABDOMEN: Soft. IMPRESSION: Left amish 2 cm skin cancer. PLAN: Excision and split-thickness skin graft with Dr. Michele Hsieh. This report was dictated for Dr. Hsieh by Loretta Borjas NP.
[~2025-04-22 07:51] MED LIST: MINERAL OIL LIGHT 10 ML FOR SURGERY ONE; XYLOCAINE 1%/Epi 1:100000 MDV 20 ML ONE
[2025-04-22 08:26] VITALS: RESP 16; TEMP 97.1
[2025-04-22 08:29] LABS: Calcium 9.2 mg/dL (8.4-10.2); Carbon Dioxide 27.0 mmol/L (22-30); Creatinine 1 1.59 mg/dL (0.66-1.25); EST GLOMERULAR FILTRATION RATE 43.1 ML/MIN; Glucose 155.0 mg/dL (74-106); Potassium 4.0 mmol/L (3.5-5.1); SGOT/AST 28.0 U/L (17-59); SGPT/ALT 18.0 U/L (0-50); Total Protein 7.5 g/dL (6.3-8.2)
[2025-04-22] MEDS ORDERED: SUBLIMAZE 100 MCG/2 ML ONE (09:54)
[2025-04-22] MEDS ORDERED: propofoL IV ONE (09:55)
[2025-04-22] MEDS ORDERED: Xylocaine-Mpf 2% 5 Ml Vial ONE (09:55)
[2025-04-22] MEDS ORDERED: KEFZOL 1 GM ONE (10:15)
[2025-04-22] MEDS ORDERED: Xylocaine 1% Vial 30 ML PF IJ ONE (10:31)
[2025-04-22] MEDS ORDERED: Triple Antibiotic Ointment ONE (10:49)
[2025-04-22 11:55] VITALS: O2SAT 96
[2025-04-22 12:09] VITALS: BP 170/93; PULSE 58
--- NOTE | 2025-04-25 20:19 | OP ---
SURGERY DATE/TIME: 04/22/2025 [id number] PREOPERATIVE DIAGNOSIS: Skin cancer, left quaker, biopsy-proven squamous. POSTOPERATIVE DIAGNOSIS: Skin cancer, left quaker, biopsy-proven squamous, size 3 cm x 3 cm circular. PROCEDURES: 1) A 4 cm circular excision, left quaker, skin, subcutaneous. 2) Grafton of 6 sq cm of split-thickness skin graft. 3) Application of 6 sq cm of split-thickness skin graft to the left forehead. SURGEON: Michele Hsieh MD. ANESTHESIA: General. COMPLICATIONS: None. CONDITION: Stable. DESCRIPTION OF PROCEDURE AND FINDINGS: Patient taken to surgery. Circular excision of this area with about 5 mm margins. All of his skin is damaged, so there will be actinic changes and other milder changes at the edge of the specimen. Suture was placed at 12 o'clock. Split-thickness skin graft 0.013 inch was harvested from the left thigh. It was applied with inverting sutures of 4-0 chromic. Sterile ointment, sterile dressing. The patient tolerated the procedure satisfactory.
== END 2025-04-22 12:19 | disposition home or self-care (01) ==
LOC: SDC 07:51
PROVIDERS: ATTEND Surgery
DX: C44.92 Squamous cell carcinoma of skin, unspecified (principal); E11.9 Type 2 diabetes mellitus without complications; I10 Essential (primary) hypertension

== ENCOUNTER 2025-04-24 15:13 | Emergency (ER) | payer OTHER ==
[2025-04-24 15:33] VITALS: TEMP 97.3
--- NOTE | 2025-04-24 15:46 | ERPHSYRPT ---
- History of Present Illness Patient Subjective Stated Complaint: pt had a cancer spot (3x3cm) removed from his left alevism on and a skin graft placed on it, pt thinks that the graft is gone but it appears to be in tact Triage Nursing Assessment: Pt brought self to the ER, hypertensive, rates pain as 12/24, pt had a cancer spot (3x3cm) removed from his left alevism on and a skin graft placed on it, pt thinks that the graft is gone but it appears to be in tact, denies chest pain, denies SOB, doesn't appear to be in any distress Physician History: Wound recheck, patient had a excisional biopsy done in the last week and was changing the dressing and was concerned that he may have removed the skin graft,, he noticed a large hole in the left side of his alevism where the wound is at, he states that he wanted to know when that is going to heal Timing/Duration: day(s) (3) Location: face Allergies/Adverse Reactions: No Known Drug Allergies Allergy (Verified 04/24/25 15:33) Home Medications: Amlodipine Besylate 5 mg [Norvasc 5 mg] 5 mg PO DAILY 02/13/21 [History] Aspirin EC 81 mg [Ecotrin 81 mg] 81 mg PO DAILY 02/13/21 [History] Omeprazole 20 mg PO DAILY 02/13/21 [History] Acetaminophen [Pain Relief] 500 mg PO DAILY PRN 04/13/25 [History] Clopidogrel Bisulfate [Plavix] 75 mg PO DAILY 04/13/25 [History] Gabapentin 100 mg PO DAILY 04/13/25 [History] Isosorbide Mononitrate [Isosorbide Mononitrate ER] 60 mg PO DAILY 04/13/25 [History] Metoprolol Succinate 50 mg PO DAILY 04/13/25 [History] Rosuvastatin Calcium 40 mg PO DAILY 04/13/25 [History] Tamsulosin HCl 0.4 mg PO DAILY 04/13/25 [History] methocarbamoL [Methocarbamol] 500 mg PO DAILY 04/13/25 [History] Hx Tetanus, Diphtheria Vaccination/Date Given: No Hx Influenza Vaccination/Date Given: No Hx Pneumococcal Vaccination/Date Given: Yes Travel Risk - International Travel Have you traveled outside of the country in past 3 weeks: No - Emerging Infectious Disease Are you exhibiting symptoms associated with any current EIDs: No - Past Medical History Pertinent Past Medical History: Yes Neurological History: Stroke ENT History: No Pertinent History Cardiac History: Angina, Coronary Artery Disease, High Cholesterol, Hypertension, Myocardial Infarction ([place]) Respiratory History: No Pertinent History Endocrine Medical History: Diabetes Type II, Hypoglycemia Musculoskeletal History: No Pertinent History GI Medical History: Esophageal Disorder, Gallbladder Disease, Hemorrhoids, Hernia History: Renal Disease Psycho-Social History: Other Male Reproductive Disorders: No Pertinent History Other Medical History: PTSD- [place] - Past Surgical History Past Surgical History: Yes Neuro Surgical History: No Pertinent History Cardiac: CABG Respiratory: No Pertinent History Gastrointestinal: Cholecystectomy, Hernia Repair Genitourinary: No Pertinent History Musculoskeletal: Orthopedic Surgery Male Surgical History: No Pertinent History Other Surgical History: right elbow. bilat knee scope. joint pain bilateral knee Significant Family History: no pertinent family hx - Social History Smoking Status: Former smoker Exposure to second hand smoke: No Drug Use: none - Social Determinants of Health Will the patient participate in the screening: Yes Do you worry about a steady place to live?: No Do you have any problems with any of the following?: No known problems In the past 12 months,have you had to go without utilities?: No Transportation Issues: No Has anyone in your support network made you feel unsafe?: No Have you or anyone in your house had to go w/o enough food: No - Nursing Vital Signs Nursing Vital Signs: Initial Vital Signs Temperature 97.3 F 04/24/25 15:25 Pulse Rate 61 04/24/25 15:25 Blood Pressure 152/87 04/24/25 15:25 O2 Sat by Pulse Oximetry 96 04/24/25 15:25 Pain Scale Pain Intensity 7 - Physical Exam General Appearance: no apparent distress, alert Eye Exam: PERRL/EOMI, eyes nml inspection Ears, Nose, Throat Exam: normal ENT inspection Extremity Exam: normal inspection Neurologic Exam: alert, oriented x 3, cooperative, roving teller II-XII nml as tested Skin Exam: normal color, warm, dry, other (Circular wound to the left alevism that appears in good repair with a skin graft) SpO2 Interpretation: normal SpO2: 96 - Progress Progress Note: 04/24/25 15:43 Discussed wound care and wound healing with the patient, I explained to him That if he has any questions concerning the surgery that he should follow-up with Dr. Hsieh, he states he does have a schedule appointment till the , I told him that if he has any questions he may call the office and they will be glad to take a look at the wound if he has questions - Departure Departure Disposition: Home Clinical Impression: Encounter for wound re-check Condition: Stable Critical Care Time: No Referrals: MARY HSIEH [ACTIVE STAFF, GENERAL SURGERY] - Follow up/PCP as directed Instructions: Wound Care (DC) Additional Instructions: If you have any questions concerning your wound you may call Dr. Hsieh's office, Continue dressing change
[2025-04-24 16:07] VITALS: BP 137/85; PULSE 78; RESP 18; O2SAT 95
== END 2025-04-24 16:08 | disposition home or self-care (01) ==
LOC: ED 15:13
DX: Z48.01 Encounter for change or removal of surgical wound dressing (principal); I10 Essential (primary) hypertension; E11.9 Type 2 diabetes mellitus without complications; Z79.02 Long term (current) use of antithrombotics/antiplatelets; Z79.899 Other long term (current) drug therapy